=== PATIENT | female | born 1990 | race African-American/Black ===

== ENCOUNTER 2016-04-05 11:18 | Outpatient (CLI) | payer BC, MEDICAID | END 2016-04-05 23:59 | DX: Z36 Encounter for antenatal screening of mother (principal) ==

== ENCOUNTER 2016-04-11 09:28 | Inpatient (IN) | payer MEDICAID ==
[2016-04-11] MEDS ORDERED: SODIUM CHLORIDE FLUSH 0.9% 10 ML SYRINGE IVP ONE ×2 (10:27→13:35)
[2016-04-11] MEDS ORDERED: LACTATED RINGERS 1,000 ML IV ONE (10:27)
[2016-04-11] MEDS ORDERED: ceFAZolin 2 GM/50 ML 50 ML IV SCH (11:00)
[2016-04-11] MEDS ORDERED: fentaNYL 100 MCG/2 ML VIAL IVP ONE (12:00)
[2016-04-11] MEDS ORDERED: MORPHINE PF 5 MG/10 ML AMP EP ONE (12:00)
[2016-04-11] MEDS ORDERED: ONDANSETRON 4 MG/2 ML VIAL IVP ONE (12:00)
[2016-04-11] MEDS ORDERED: METHYLERGONOVINE 0.2 MG/ML AMP IVP ONE (12:00)
[2016-04-11] MEDS ORDERED: PHENYLEPHRINE 50 MG/5 ML VIAL IV ONE (12:00)
[2016-04-11] MEDS ORDERED: KETOROLAC 30 MG/ML VIAL IVP ONE (12:00)
[2016-04-11] MEDS ORDERED: MAGNESIUM HYDROXIDE 2,400 MG/30 ML UDC PO PRN (13:58)
[2016-04-11] MEDS ORDERED: LACTATED RINGERS 1,000 ML IV SCH (14:00)
[2016-04-11] MEDS ORDERED: OXYTOCIN/LACTATED RINGERS 250 ML IV SCH (14:00)
[2016-04-11] MEDS: oxyCODONE 5 MG TABLET PO PRN ×3 (17:02→23:21)
[2016-04-11] MEDS: ACETAMINOPHEN 500 MG TABLET PO SCH (20:22)
[2016-04-11] MEDS: DOCUSATE SODIUM 100 MG CAPSULE PO SCH (21:14)
[2016-04-11] MEDS: CELECOXIB 100 MG CAPSULE PO SCH (21:15)
[2016-04-11] MEDS: SIMETHICONE CHEW 80 MG TABLET PO SCH (21:46)
[2016-04-12] MEDS ORDERED: SODIUM CHLORIDE FLUSH 0.9% 10 ML SYRINGE IVP ONE (02:54)
[2016-04-12] MEDS: ACETAMINOPHEN 500 MG TABLET PO SCH ×3 (04:18→20:58)
[2016-04-12] MEDS: oxyCODONE 5 MG TABLET PO PRN ×4 (06:10→19:09)
[2016-04-12] MEDS: CELECOXIB 100 MG CAPSULE PO SCH ×2 (08:38→20:59)
[2016-04-12] MEDS: DOCUSATE SODIUM 100 MG CAPSULE PO SCH ×2 (08:38→20:59)
[2016-04-12] MEDS: SIMETHICONE CHEW 80 MG TABLET PO SCH ×3 (10:18→19:09)
[2016-04-13] MEDS: oxyCODONE 5 MG TABLET PO PRN ×5 (00:42→21:13)
[2016-04-13] MEDS: ACETAMINOPHEN 500 MG TABLET PO SCH ×2 (04:52→17:06)
[2016-04-13] MEDS: SIMETHICONE CHEW 80 MG TABLET PO SCH ×4 (08:40→21:13)
[2016-04-13] MEDS: DOCUSATE SODIUM 100 MG CAPSULE PO SCH ×2 (08:40→21:14)
[2016-04-13] MEDS: CELECOXIB 100 MG CAPSULE PO SCH ×2 (08:40→21:13)
[2016-04-14] MEDS: ACETAMINOPHEN 500 MG TABLET PO SCH ×2 (01:18→09:11)
[2016-04-14] MEDS: oxyCODONE 5 MG TABLET PO PRN ×4 (01:19→17:31)
[2016-04-14] MEDS: DOCUSATE SODIUM 100 MG CAPSULE PO SCH (09:08)
[2016-04-14] MEDS: CELECOXIB 100 MG CAPSULE PO SCH (09:09)
[2016-04-14] MEDS ORDERED: MAGNESIUM HYDROXIDE 2,400 MG/30 ML UDC PO ONE (10:00)
== END 2016-04-14 17:40 | disposition home or self-care (01) | DRG 766 ==
PROC: 10D00Z1 Extraction of Products of Conception, Low, Open Approach (ICD-10-PCS; principal; 2016-04-11 13:00)
DX: O34.211 Maternal care for low transverse scar from previous cesarean delivery (principal); N85.8 Other specified noninflammatory disorders of uterus; O75.82 Onset (spontaneous) of labor after 37 completed weeks of gestation but before 39 completed weeks gestation, with delivery by (planned) cesarean section; Z3A.37 37 weeks gestation of pregnancy; Z37.0 Single live birth; O90.89 Other complications of the puerperium, not elsewhere classified; G44.209 Tension-type headache, unspecified, not intractable; K59.03 Drug induced constipation; T40.605A Adverse effect of unspecified narcotics, initial encounter; Y92.239 Unspecified place in hospital as the place of occurrence of the external cause

== ENCOUNTER 2016-11-02 19:56 | Emergency (ER) | payer MEDICAID ==
[2016-11-02 20:30] LABS: BILIRUBIN,URINE NEGATIVE (NEGATIVE); HCG UR QUAL NEGATIVE; UA CHARGE (STRIP ONLY) YES; UR CULTURE IF IND NOT INDICATED
--- NOTE | 2016-11-02 21:35 | ED Physician Documentation ---
PD HPI ABD PAIN - Stated complaint Stated Complaint: ABD PX/DIZZINESS - Chief complaint Chief Complaint: Abd Pain - History obtained from History obtained from: Patient - History of Present Illness Timing - onset: Enter time (22:30), Yesterday Timing - details: Gradual onset, Waxing and waning Pain level now: 6 Quality: Pain Location: RLQ, LLQ Improved by: No: Eating, Laying still, Vomiting, BM, Position, Meds Worsened by: No: Eating, Moving, Breathing, Position, Palpation Associated symptoms: Nausea, Vomiting, Diarrhea. No: Fever Similar symptoms before: Has not had sx before Recently seen: Not recently seen - Additional information Additional information: since 10:30 PM last night, patient has had nausea, vomiting, and diarrhea. 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 09/23/14 10/03/15 [Whitney Taylor 10-10 mg Tablet] Pnv No.122/Iron/Folic Acid 1 each PO DAILY #90 tablet 09/23/14 10/03/15 [ Multi Tablet] Famotidine 20 mg PO DAILY #30 tablet 10/03/15 Ondansetron Odt [Zofran] 4 mg TL Q6H PRN #10 tablet 11/03/16 - Allergies Allergies/Adverse Reactions: Allergies Allergy/AdvReac Type Severity Reaction Status Date / Time No Known Drug Allergies Allergy Verified 08/01/13 22:13 - Social History Does the pt smoke?: Yes Smoking Status: Former smoker Does the pt drink ETOH?: No Does the pt have substance abuse?: No - Immunizations Immunizations are current?: Yes - POLST Patient has POLST: No PD ED PE NORMAL - Vitals Vital signs reviewed: Yes - General General: Alert and oriented X 3, No acute distress, Well developed/nourished - HEENT HEENT: Other (tacky/pasty mucous membranes) - Neck Neck: Supple, no meningeal sign - Cardiac Cardiac: RRR, No murmur, No gallop, No rub - Respiratory Respiratory: No respiratory distress, Clear bilaterally - Abdomen Abdomen: Soft, Non distended, Other (tenderness to deep palpation bilateral lower quadrants) - Back Back: No CVA TTP - Derm Derm: Normal color, Warm and dry Results - Vitals Vitals: Vital Signs - 24 hr 11/02/16 11/02/16 11/02/16 20:05 22:01 22:48 Temperature 36.7 C Heart Rate 112 H 102 H 99 Respiratory 18 16 16 Rate Blood Pressure 120/78 114/60 113/61 O2 Saturation 100 99 100 11/03/16 00:32 Temperature 36.5 C Heart Rate 88 Respiratory 16 Rate Blood Pressure 105/62 O2 Saturation 100 Oxygen O2 Source Room air - Labs Labs: Laboratory Tests 11/02/16 11/02/16 11/02/16 20:10 21:30 21:30 WBC 9.6 RBC 3.73 L Hgb 12.8 Hct 34.7 L MCV 92.8 MCH 34.3 H MCHC 37.0 H RDW 19.0 H Plt Count 232 MPV 8.6 Sodium 139 Potassium 3.5 Chloride 105 Carbon Dioxide 25 Anion Gap 9.0 BUN 16 Creatinine 0.5 Estimated GFR (MDRD) 181 Glucose 111 H Calcium 9.2 Total Bilirubin 4.2 H AST 27 ALT 40 Alkaline Phosphatase 68 Total Protein 7.9 Albumin 4.5 Globulin 3.4 Albumin/Globulin Ratio 1.3 Lipase 24 Urine Color ORANGE Urine Clarity CLEAR Urine pH 6.0 Ur Specific Somers 1.025 Urine Protein TRACE Urine Glucose (UA) NEGATIVE Urine Ketones TRACE Urine Occult Blood NEGATIVE Urine Nitrite NEGATIVE Urine Bilirubin NEGATIVE Urine Urobilinogen 1 (NORMAL) Ur Leukocyte Esterase NEGATIVE Ur Microscopic Review NOT INDICATED Urine Culture Comments NOT INDICATED Urine HCG, Qual NEGATIVE - Rads (name of study) CT A/P Radiology: Prelim report reviewed, See rad report PD MEDICAL DECISION MAKING - ED course Complexity details: reviewed results, re-evaluated patient, considered differential, d/w patient Departure - Departure Disposition: 01 Home, Self Care Clinical Impression: Vomiting, Diarrhea Condition: Good Instructions: ED Diet Vomiting Diarrhea, ED Vomiting Diarrhea Nonspecific Ad Follow-Up: [facility] [Provider Group] [facility] [Provider Group] Prescriptions: Ondansetron Odt [Zofran] 4 mg TL Q6H PRN #10 tablet PRN Reason: Nausea / Vomiting Forms: Activity restrictions Discharge Date/Time: 11/03/16 00:34
[2016-11-02 21:47] LABS: HCT - HEMATOCRIT 34.7 % (37.0-47.0); HGB - HEMOGLOBIN 12.8 g/dL (12.0-16.0); MEAN CORPUSCULAR HEMOGLOBIN 34.3 pg (27.0-31.0); MEAN CORPUSCULAR VOLUME 92.8 fL (81.0-99.0); MEAN PLATELET VOLUME 8.6 fL (7.9-10.8); RED BLOOD COUNT 3.73 10^6/uL (4.20-5.40); WHITE BLOOD COUNT 9.6 x10^3/uL (4.8-10.8)
[2016-11-02] MEDS ORDERED: SODIUM CHLORIDE 0.9% 1,000 ML IV STA (21:47)
[2016-11-02] MEDS ORDERED: ONDANSETRON 4 MG/2 ML VIAL IVP STA (21:47)
[2016-11-02] MEDS ORDERED: KETOROLAC 60 MG/2 ML VIAL IVP STA (21:49)
[2016-11-02 21:55] LABS: ALBUMIN/GLOBULIN RATIO 1.3 (1.0-2.2); BILIRUBIN,TOTAL 4.2 mg/dL (0.2-1.0); CALCIUM 9.2 mg/dL (8.5-10.3); CREATININE 0.5 mg/dL (0.4-1.0); POTASSIUM 3.5 mmol/L (3.5-5.0); TOTAL PROTEIN 7.9 g/dL (6.7-8.2)
[2016-11-02] MEDS ORDERED: KETOROLAC 30 MG/ML VIAL ONE (21:57)
[2016-11-02] MEDS ORDERED: ONDANSETRON 4 MG/2 ML VIAL ONE (21:57)
[2016-11-02] MEDS ORDERED: IOPAMIDOL-300 100 ML VIAL IVP ONE (22:37)
--- NOTE | 2016-11-02 23:08 | CT Preliminary Report ---
Exam: CT Abdomen/Pelvis W/ IMPRESSION: Normal abdomen and pelvis CT. [facility] SITE ID: [id number]
--- NOTE | 2016-11-02 23:13 | CT Report ---
EXAM: CT ABDOMEN AND PELVIS EXAM DATE: 11/02/2016 10:49 PM. CLINICAL HISTORY: Lower abdominal pain. COMPARISONS: Chest CT 03/28/2013. TECHNIQUE: Routine helical CT imaging was performed through the abdomen and pelvis. IV contrast: Yes . Enteric contrast: No . Reconstructions: Coronal and sagittal. In accordance with CT protocol optimization, one or more of the following dose reduction techniques w ere utilized for this exam: automated exposure control, adjustment of mA and/or KV based on patient s ize, or use of iterative reconstructive technique. FINDINGS: Lung Bases: Unremarkable. Liver: Unremarkable. No suspicious masses. Gallbladder/Bile Ducts: Unremarkable. Spleen: Unremarkable. Pancreas: Unremarkable. Adrenal Glands: Unremarkable. Kidneys: Unremarkable. No suspicious masses or hydronephrosis. Peritoneal Cavity/Bowel: No bowel obstruction or inflammatory process seen. No free air or significan t free fluid. No masses or adenopathy. The appendix is normal. No excessive stool burden. Pelvic Organs: Bladder, uterus, and adnexa appear unremarkable. Vasculature: No aneurysms or other significant abnormality. Bones: No significant abnormality. Other: None. IMPRESSION: Normal abdomen and pelvis CT. [facility] Referring Provider Line: [phone] SITE ID: [id number]
[2016-11-03] MEDS ORDERED: ONDANSETRON 4 MG/2 ML VIAL IVP STA (00:04)
[2016-11-03] MEDS ORDERED: HYDROmorphone 1 MG/ML SYRINGE IVP STA (00:04)
[2016-11-03] MEDS ORDERED: ONDANSETRON ODT 4 MG TABLET TL STA (00:05)
[2016-11-03] MEDS ORDERED: HYDROmorphone 1 MG/ML SYRINGE ONE (00:10)
[2016-11-03] MEDS ORDERED: ONDANSETRON 4 MG/2 ML VIAL ONE (00:10)
[2016-11-03] MEDS ORDERED: ONDANSETRON ODT 4 MG Prepack 2 TL STA (00:14)
[2016-11-03] MEDS ORDERED: ONDANSETRON ODT 4 MG Prepack 2 TL ONE (00:25)
[2016-11-03 01:10] VITALS: BP 105/62
== END 2016-11-03 00:34 | disposition home or self-care (01) ==
LOC: ED 19:56
DX: R11.2 Nausea with vomiting, unspecified (principal); R19.7 Diarrhea, unspecified; R10.31 Right lower quadrant pain; Z87.891 Personal history of nicotine dependence; Z87.442 Personal history of urinary calculi
CPT/HCPCS: 36415; 74177; 80053; 81003; 81025; 83690; 85027; 96361; 96374; 96375; 96376; 99284; J1170; Q9967; 81001; 87086

== ENCOUNTER 2017-10-26 16:40 | Emergency (ER) | payer MEDICAID ==
[2017-10-26 16:50] VITALS: BP 129/81
--- NOTE | 2017-10-26 17:25 | ED Physician Documentation ---
PD HPI UPPER EXT INJURY - Stated complaint Stated Complaint: FINGER INJURY - Chief complaint Chief Complaint: Ext Problem - History obtained from History obtained from: Patient, Family - History of Present Illness Location: Left, Finger (middle) Type of injury: Blunt / blow Where injury occurred: Street Timing - onset: Enter time (1600), Today Timing - duration: Minutes Timing - details: Abrupt onset, Still present Improved by: Rest, Immobilization Worsened by: Moving, Palpating Associated symptoms: Swelling. No: Weakness, Numbness Contributing factors: No: Anticoagulated Similar symptoms before: Has not had sx before Recently seen: Not recently seen - Additonal information Additional information: 27-year-old female was at the [place] with her daughter today when she went to get back into her car her daughter accidentally slammed her hand in the car door. She has an abrasion and laceration to the left middle finger and a lot of pain over the DIP joint. Review of Systems Constitutional: denies: Fever Respiratory: denies: Cough GI: denies: Vomiting, Diarrhea : denies: Dysuria Skin: denies: Rash Musculoskeletal: reports: Extremity pain, Joint pain, Joint swelling. 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 - Present Medications Home Medications: Ambulatory Orders Medication Instructions Recorded Confirmed No Known Home Medications [No 10/26/17 10/26/17 Known Home Medications] - Allergies Allergies/Adverse Reactions: Allergies Allergy/AdvReac Type Severity Reaction Status Date / Time No Known Drug Allergies Allergy Verified 10/26/17 16:50 - Social History Does the pt smoke?: Yes Smoking Status: Former smoker Does the pt drink ETOH?: No Does the pt have substance abuse?: No - Immunizations Immunizations are current?: Yes - POLST Patient has POLST: No PD ED PE NORMAL - Vitals Vital signs reviewed: Yes (hypertensive ) - General General: Alert and oriented X 3, No acute distress, Well developed/nourished - HEENT HEENT: Atraumatic, PERRL - Respiratory Respiratory: No respiratory distress - Derm Derm: Normal color, Warm and dry, No rash - Extremities Extremities: No deformity, Other (There is point tenderness and swelling to the DIP joint on the left middle finger. There is laceration to the dorsal surface and the ventral surface both are superficial ) Results - Vitals Vitals: Vital Signs - 24 hr 10/26/17 16:49 Temperature 36.5 C Heart Rate 61 Respiratory 18 Rate Blood Pressure 129/81 H O2 Saturation 98 Oxygen O2 Source Room air - Rads (name of study) hand Radiology: Prelim report reviewed (Impression: Normal hand radiography. ), EMP read indepedently, See rad report PD MEDICAL DECISION MAKING - ED course Complexity details: reviewed results, re-evaluated patient, considered differential, d/w patient, d/w family ED course: 27-year-old female has caught her left middle finger in the car door and has contusion to the middle finger without evidence of fracture and there is deep abrasion to the finger on both volar and dorsal surface. These lacerations do not require suturing. - Sepsis Event Vital Signs: Vital Signs - 24 hr 10/26/17 16:49 Temperature 36.5 C Heart Rate 61 Respiratory 18 Rate Blood Pressure 129/81 H O2 Saturation 98 Oxygen O2 Source Room air Departure - Departure Disposition: 01 Home, Self Care Clinical Impression: Finger contusion Qualifiers: Encounter type: initial encounter Finger: middle finger Damage to nail status: without damage Laterality: left Qualified Code(s): S60.032A - Contusion of left middle finger without damage to nail, initial encounter Condition: Stable Instructions: ED Contusion Finger Follow-Up: [facility] [Provider Group] Forms: Activity restrictions
--- NOTE | 2017-10-26 17:45 | XRAY Report ---
Procedure Date: 10/26/2017 Accession Number: [id number] / [id number] Procedure: XR - Hand 3 View LT CPT Code: FULL RESULT: EXAM: LEFT HAND RADIOGRAPHY EXAM DATE: 10/26/2017 05:38 PM. CLINICAL HISTORY: Caught in car door. Pain mainly over second and third distal digits. COMPARISON: None. TECHNIQUE: 3 views. FINDINGS: Bones: Normal. No fractures or bone lesions. Joints: Normal. No subluxations. Soft Tissues: Normal. No soft tissue swelling. IMPRESSION: Normal hand radiography. [facility]
== END 2017-10-26 18:11 | disposition home or self-care (01) ==
LOC: ED 16:40
DX: S61.213A Laceration without foreign body of left middle finger without damage to nail, initial encounter (principal); S60.032A Contusion of left middle finger without damage to nail, initial encounter; W23.0XXA Caught, crushed, jammed, or pinched between moving objects, initial encounter; Y92.830 Public park as the place of occurrence of the external cause
CPT/HCPCS: 99282; 99283

== ENCOUNTER 2017-11-15 13:30 | Outpatient (CLI) | payer MEDICAID ==
[2017-11-18 17:41] LABS: HIV AG/AB 4TH GEN NON-REACTIVE (NON-REACTIVE)
[2017-11-18 19:51] LABS: HEPATITIS C ANTIBODY NON-REACTIVE (NON-REACTIVE)
== END 2017-11-15 13:31 | disposition home or self-care (01) ==
LOC: LAB.N 13:30
PROVIDERS: ATTEND Physician Assistant Medical
DX: Z11.3 Encounter for screening for infections with a predominantly sexual mode of transmission (principal)
CPT/HCPCS: 36415; 81599; 86592; 86803; 87389; 87491; 87591

== ENCOUNTER 2018-03-22 00:11 | Emergency (ER) | payer MEDICAID ==
--- NOTE | 2018-03-22 00:18 | ED Physician Documentation ---
PD HPI URI - Stated complaint Stated Complaint: SORE THROAT,CHEST CONGESTION - History obtained from History obtained from: Patient - History of Present Illness Timing - onset: How many days ago (2-3) Timing duration: Days (2-3) Timing details: Gradual onset, Still present Associated symptoms: Nasal congestion, Sore throat, Dry cough, NVD (nausea and some loose stool, but no vomiting). No: Fever Contributing factors: No: Sick contact, Travel Similar symptoms before: Has not had sx before Recently seen: Not recently seen Review of Systems Constitutional: reports: Myalgias. denies: Fever Nose: reports: Congestion Throat: reports: Sore throat, Other (hoarse voice for 2 days) Respiratory: reports: Cough. denies: Dyspnea, Wheezing GI: reports: Nausea, Diarrhea (mild). 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 - Present Medications Home Medications: Ambulatory Orders Medication Instructions Recorded Confirmed Benzonatate [Tessalon Perle] 100 - 200 mg PO TID PRN #30 capsule 03/22/18 Dexamethasone [Decadron] 4 mg PO DAILY #5 tablet 03/22/18 - Allergies Allergies/Adverse Reactions: Allergies Allergy/AdvReac Type Severity Reaction Status Date / Time No Known Drug Allergies Allergy Verified 03/22/18 00:21 - Social History Does the pt smoke?: Yes Smoking Status: Current every day smoker Does the pt drink ETOH?: No Does the pt have substance abuse?: No - Immunizations Immunizations are current?: Yes - POLST Patient has POLST: No PD ED PE NORMAL - Vitals Vital signs reviewed: Yes - General General: Alert and oriented X 3, Well developed/nourished - HEENT HEENT: Pharynx benign (minimal redness without swelling nor exudate) - Neck Neck: Supple, no meningeal sign, No adenopathy - Cardiac Cardiac: RRR, No murmur - Respiratory Respiratory: Clear bilaterally - Derm Derm: Normal color, Warm and dry, No rash - Neuro Neuro: Alert and oriented X 3, No motor deficit, Normal speech (slight hoarseness) Results - Vitals Vitals: Vital Signs - 24 hr 03/22/18 00:18 Temperature 37.0 C Heart Rate 110 H Respiratory 17 Rate Blood Pressure 134/83 H O2 Saturation 100 Oxygen O2 Source Room air PD MEDICAL DECISION MAKING - ED course Complexity details: considered differential (upper resp symptoms. Can check strep swab as well. No pneumonic findings per se. ), d/w patient Departure - Departure Clinical Impression: Upper respiratory infection Qualifiers: URI type: unspecified URI Qualified Code(s): J06.9 - Acute upper respiratory infection, unspecified Condition: Stable Record reviewed to determine appropriate education?: Yes Instructions: ED Upper Resp Infec No Abx Tx Prescriptions: Benzonatate [Tessalon Perle] 100 - 200 mg PO TID PRN #30 capsule PRN Reason: Cough Dexamethasone [Decadron] 4 mg PO DAILY #5 tablet Comments: Drink lots of fluids. You could add Decadron steroid for inflammation of the throat and bronchials to reduce symptoms. Tessalon if needed for cough. [id number] medications such as cough medicine and lozenges and Tylenol or ibuprofen are all okay. I would expect improvement over the next several days or so. No signs of bacterial infection at this time so I would not anticipate any improvement with antibiotics. Forms: Activity restrictions
[2018-03-22 00:21] VITALS: BP 134/83
[2018-03-22] MEDS ORDERED: BENZONATATE 100 MG CAPSULE PO STA (00:35)
[2018-03-22] MEDS ORDERED: DEXAMETHASONE 10 MG/ML VIAL PO STA (00:35)
[2018-03-22] MEDS ORDERED: ACETAMINOPHEN 325 MG TABLET PO STA (00:35)
[2018-03-22] MEDS ORDERED: ONDANSETRON ODT 4 MG TABLET TL STA (00:38)
== END 2018-03-22 00:52 | disposition home or self-care (01) ==
LOC: ED 00:11
DX: J06.9 Acute upper respiratory infection, unspecified (principal); F17.200 Nicotine dependence, unspecified, uncomplicated
CPT/HCPCS: 87070; 87077; 87430; 99283; A9270; Q0162

== ENCOUNTER 2019-04-04 09:06 | Outpatient (CLI) | payer MEDICAID ==
--- NOTE | 2019-04-05 23:31 | Ultrasound Report ---
Reason: DYSFUNCTIONAL UTERINE BLEEDING Procedure Date: 04/04/2019 Accession Number: [id number] / [id number] Procedure: US - Pelvic w/Transvaginal CPT Code: Final Report FULL RESULT: EXAM: PELVIC ULTRASOUND EXAM DATE: 04/04/2019 09:18 AM. CLINICAL HISTORY: DYSFUNCTIONAL UTERINE BLEEDING. COMPARISON: None. TECHNIQUE: Realtime transabdominal pelvic scan performed to identify the uterus and adnexa and as an overview of other pelvic structures, followed by transvaginal scan to provide greater detail of the uterus and adnexa, with static image documentation. FINDINGS: Uterus: 8.8 x 4.6 x 6.9 cm, volume 145 cc. ANTEVERTED position. Normal overall size and echotexture. Masses: None. Endometrium: 5 mm. Trace fluid in the endometrial cavity. Cervix: Small nabothian cyst. Right Ovary: 1.9 x 1.0 x 1.9 cm, volume 1.9 cc. Normal echotexture and blood flow. Left Ovary: 1.8 x 1.6 x 2.5 cm, volume 3.7 cc. Dominant follicle measuring 1.5 x 1.1 x 1.5 cm. Normal Doppler flow signal seen in the ovary. Free Fluid: Trace amount in the posterior cul-de-sac and right adnexa. Other: None. IMPRESSION: 1. Endometrial thickness is normal. There is trace endometrial fluid consistent with history of dysfunctional uterine bleeding. 2. Ovaries appear normal with dominant follicle on the left. 3. Trace amount of free fluid. [facility]
== END 2019-04-04 09:07 | disposition home or self-care (01) ==
LOC: DI 09:06
PROVIDERS: ATTEND Obstetrics & Gynecology
DX: N93.8 Other specified abnormal uterine and vaginal bleeding (principal)
CPT/HCPCS: 76830; 76856

== ENCOUNTER 2019-05-27 07:00 | Outpatient (CLI) | payer MEDICAID ==
[2019-05-27 20:12] LABS: CANDIDA GROUP DNA POSITIVE (NEGATIVE); CANDIDA KRUSEI DNA NEGATIVE (NEGATIVE); TRICHOMONAS VAGINALIS DNA NEGATIVE (NEGATIVE)
== END 2019-05-27 23:59 | disposition home or self-care (01) ==
LOC: LAB.R 07:00
PROVIDERS: ATTEND Nurse Practitioner Obstetrics & Gynecology
DX: N89.8 Other specified noninflammatory disorders of vagina (principal)
CPT/HCPCS: 87661; 87801

== ENCOUNTER 2019-09-26 17:52 | Emergency (ER) | payer MEDICAID ==
[2019-09-26] MEDS ORDERED: BUFFERED LIDOCAINE 10 ML SYRINGE SUBQ STA (18:38)
[2019-09-26] MEDS ORDERED: TETANUS/DIPHTHERIA/PERTUSSIS 0.5 ML SYRINGE IM ONE (18:38)
--- NOTE | 2019-09-26 18:39 | ED Physician Documentation ---
PD HPI UPPER EXT INJURY - Stated complaint Stated Complaint: RT HAND LAC - Chief complaint Chief Complaint: Laceration - History of Present Illness Location: Right (She had a stick in her hand and swelling it up and then it kind of stabbed her in the palm at home just prior to arrival. Tetanus is unknown. 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 Home Medications: Ambulatory Orders Medication Instructions Recorded Confirmed Benzonatate [Tessalon Perle] 100 - 200 mg PO TID PRN #30 capsule 03/22/18 dexAMETHasone [Decadron] 4 mg PO DAILY #5 tablet 03/22/18 - Allergies Allergies/Adverse Reactions: Allergies Allergy/AdvReac Type Severity Reaction Status Date / Time No Known Drug Allergies Allergy Verified 09/26/19 17:54 - Social History Does the pt smoke?: Yes Smoking Status: Current every day smoker Does the pt drink ETOH?: No Does the pt have substance abuse?: No - Immunizations Immunizations are current?: Yes - POLST Patient has POLST: No PD ED PE NORMAL - Vitals Vital signs reviewed: Yes - General General: Alert and oriented X 3, No acute distress - Extremities Extremities: Other (There is a 1 cm laceration on the palm of the right hand basically right over the mid carpals. Flexor tendon strength is intact in all digits as is sensation and cap refill.) - Neuro Neuro: Alert and oriented X 3, Normal speech Results - Vitals Vitals: Vital Signs - 24 hr 09/26/19 17:54 Temperature 36.8 C Heart Rate 76 Respiratory 16 Rate Blood Pressure 129/78 O2 Saturation 97 Oxygen O2 Source Room air Procedures - Laceration (location) L palm Length in cm: 1 Wound type: Linear, Into subcut fat Neurovascular status: Sensory intact, Motor intact, Vascular intact Anesthesia: Lidocaine 1%, With bicarb Wound Preparation: Irrigated copiously NS Skin layer closure: Nylon, Interrupted, Size #-0 - enter number (4-0), Sutures - enter # (2) Other: Tetanus booster given Complexity: Simple Departure - Departure Disposition: 01 Home, Self Care Clinical Impression: Laceration Condition: Good Record reviewed to determine appropriate education?: Yes Instructions: ED Laceration Hand Comments: Come back for any signs of infection which would include: Redness, swelling, drainage, increased pain, or fevers. You can wash it soap and water. Keep it covered and moist with bacitracin ointment which is available over the counter; avoid neosporin. Follow-up with your physician in about 14 days for suture removal. Forms: Activity restrictions
[2019-09-26 19:16] VITALS: BP 126/89
== END 2019-09-26 19:14 | disposition home or self-care (01) ==
LOC: ED 17:52
DX: S61.411A Laceration without foreign body of right hand, initial encounter (principal); W26.8XXA Contact with other sharp object(s), not elsewhere classified, initial encounter; Y93.E5 Activity, floor mopping and cleaning; Y92.009 Unspecified place in unspecified non-institutional (private) residence as the place of occurrence of the external cause; Z23 Encounter for immunization; F17.200 Nicotine dependence, unspecified, uncomplicated
CPT/HCPCS: 12001; 90471; 99282; 99283

== ENCOUNTER 2019-12-21 06:43 | Emergency (ER) | payer OTHER, MEDICAID ==
[2019-12-21 06:56] VITALS: BP 134/84
--- NOTE | 2019-12-21 07:08 | ED Physician Documentation ---
PD HPI UPPER EXT INJURY - Stated complaint Stated Complaint: GLF/RT ARM PX - Chief complaint Chief Complaint: Trauma Ext - History obtained from History obtained from: Patient - History of Present Illness Location: Right, Shoulder Type of injury: Fall (she states she slipped walking out to trash area, and fell onto right shoulder.) Where injury occurred: Work ([employer]) Timing - onset: Today Timing - details: Abrupt onset, Still present Similar symptoms before: Has not had sx before Recently seen: Not recently seen Review of Systems Constitutional: denies: Fever, Chills Nose: denies: Rhinorrhea / runny nose, Congestion Throat: denies: Sore throat Respiratory: denies: Cough GI: denies: Abdominal Pain Musculoskeletal: reports: Joint pain (right shoulder only) Neurologic: denies: Altered mental status, Headache, Head injury PD PAST MEDICAL HISTORY - Past Medical History Cardiovascular: None Respiratory: None Neuro: None Endocrine/Autoimmune: None GI: None 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 HEENT: None Psych: None Musculoskeletal: None Derm: None - Past Surgical History 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 - Present Medications Home Medications: Ambulatory Orders Medication Instructions Recorded Confirmed Benzonatate [Tessalon Perle] 100 - 200 mg PO TID PRN #30 capsule 03/22/18 dexAMETHasone [Decadron] 4 mg PO DAILY #5 tablet 03/22/18 Cephalexin [Keflex] 500 mg PO Q6H #28 capsule 10/03/19 Hydrocodone/Acetaminophen 1 - 2 each PO Q6HR PRN #14 tablet 10/03/19 [Hydrocodone-Acetamin 5-325 mg] - Allergies Allergies/Adverse Reactions: Allergies Allergy/AdvReac Type Severity Reaction Status Date / Time No Known Drug Allergies Allergy Verified 09/26/19 17:54 - Social History Does the pt smoke?: Yes Smoking Status: Current every day smoker Does the pt drink ETOH?: No Does the pt have substance abuse?: No - Immunizations Immunizations are current?: Yes - POLST Patient has POLST: No PD ED PE NORMAL - Vitals Vital signs reviewed: Yes - General General: Alert and oriented X 3, Well developed/nourished, Other (guarded ROM of the right shoulder) - HEENT HEENT: Atraumatic - Neck Neck: Supple, no meningeal sign, No bony TTP - Derm Derm: Normal color, Warm and dry - Extremities Extremities: Other (right shoulder with tenderness anterolateral area and at distal clavicle. No stepoff at the AC. Elbow and wrist not tender. ) - Neuro Neuro: Alert and oriented X 3, No motor deficit, No sensory deficit, Normal speech Eye Opening: Spontaneous Motor: Obeys Commands Verbal: Oriented GCS Score: 15 Results - Vitals Vitals: Vital Signs - 24 hr 12/21/19 06:53 Temperature 36.7 C Heart Rate 93 Respiratory 18 Rate Blood Pressure 134/84 H O2 Saturation 97 Oxygen O2 Source Room air - Rads (name of study) right shoulder Radiology: Discussed with rads (called report - no fractures. ), See rad report PD MEDICAL DECISION MAKING - ED course Complexity details: reviewed results, considered differential (shoulder contusion. No fractures. Hurts with ROM so will allow decreased use at work for 3 days; off work today. ), d/w patient Departure - Departure Disposition: 01 Home, Self Care Clinical Impression: Fall from slip, trip, or stumble Qualifiers: Encounter type: initial encounter Qualified Code(s): W01.0XXA - Fall on same level from slipping, tripping and stumbling without subsequent striking against object, initial encounter Shoulder contusion Qualifiers: Encounter type: initial encounter Laterality: right Qualified Code(s): S40.011A - Contusion of right shoulder, initial encounter Condition: Stable Record reviewed to determine appropriate education?: Yes Discharge Date/Time: 12/21/19 09:13
--- NOTE | 2019-12-22 08:00 | XRAY Report ---
PROCEDURE: Shoulder 3 View RT INDICATIONS: fall TECHNIQUE: 3 views of the shoulder were acquired. COMPARISON: None. FINDINGS: Bones: No acute fractures or dislocations. No suspicious bony lesions. Visualized ribs appear inta ct. Soft tissues: No suspicious soft tissue calcifications. IMPRESSION: No acute osseous abnormality. Findings were discussed with Dr. Salinas of the Emergency Department by telephone on 12/21/2019 at ap proximately 9:00 AM. This dictation is being submitted the following day due to system downtime. Reviewed by: Prakash Quezada MD on 12/22/2019 7:59 AM PDT Approved by: Prakash Quezada MD on 12/22/2019 7:59 AM PDT Station ID: [id number]
== END 2019-12-21 09:13 | disposition home or self-care (01) ==
LOC: ED 06:43
DX: S40.011A Contusion of right shoulder, initial encounter (principal); W10.9XXA Fall (on) (from) unspecified stairs and steps, initial encounter; Y93.01 Activity, walking, marching and hiking; Y99.0 Civilian activity done for income or pay; F17.200 Nicotine dependence, unspecified, uncomplicated
CPT/HCPCS: 1040M; 99282; 99283

== ENCOUNTER 2019-12-23 08:00 | Outpatient (CLI) | payer MEDICAID ==
[2019-12-23 20:36] LABS: TRICHOMONAS VAGINALIS DNA NEGATIVE (NEGATIVE)
== END 2019-12-23 23:59 | disposition home or self-care (01) ==
LOC: LAB.R 08:00
PROVIDERS: ATTEND Nurse Practitioner Obstetrics & Gynecology
DX: N94.19 Other specified dyspareunia (principal)
CPT/HCPCS: 87491; 87591; 87661

== ENCOUNTER 2020-10-08 17:28 | Emergency (ER) | payer MEDICAID ==
--- NOTE | 2020-10-08 18:13 | ED Physician Documentation ---
History of Present Illness - Stated complaint Stated Complaint: COUGH/SNEEZING/RUNNING NOSE - Chief complaint Chief Complaint: General - History obtained from History obtained from: Patient - History of Present Illness Timing: How many days ago (2) Pain level max: 0 Pain level now: 0 - Additonal information Additional information: 30-year-old female presents to the emergency department with cough congestion and sneezing for the past 2 days. Nothing makes it better or worse. She works at [employer] and was supposed to return to work tonight. She is concerned about potential Covid. She has not had her vaccination. No fevers. No chills. No vomiting, no abdominal pain. No changes in smell or taste. Denies any possibility of . Review of Systems Ten Systems: 10 systems reviewed and negative Constitutional: denies: Fever, Chills Nose: reports: Rhinorrhea / runny nose, Congestion Throat: denies: Sore throat Cardiac: denies: Chest pain / pressure Respiratory: reports: Cough (Productive). denies: Dyspnea, Wheezing GI: denies: Abdominal Pain, Nausea, Vomiting, Diarrhea Skin: denies: Rash Musculoskeletal: denies: Neck pain, Back pain Neurologic: denies: Headache PD PAST MEDICAL HISTORY - Past Medical History Past Medical History: Yes Cardiovascular: None Respiratory: None Neuro: None Endocrine/Autoimmune: None GI: None COSMETIC SURGEON: None : Kidney stones HEENT: None Psych: None Musculoskeletal: None Derm: None - Past Surgical History Past Surgical History: Yes /COSMETIC SURGEON: section - Present Medications Home Medications: Ambulatory Orders Medication Instructions Recorded Confirmed Benzonatate [Tessalon] 200 mg PO TID PRN #30 cap 10/08/20 Cetirizine HCl/Pseudoephedrine 1 each PO BID PRN #30 ea 10/08/20 [Zyrtec-D Tablet] - Allergies Allergies/Adverse Reactions: Allergies Allergy/AdvReac Type Severity Reaction Status Date / Time No Known Drug Allergies Allergy Verified 10/08/20 17:33 - Social History Does the pt smoke?: No Smoking Status: Former smoker Does the pt drink ETOH?: Yes Does the pt have substance abuse?: Yes Substance Use and Type: Marijuana - Immunizations Immunizations are current?: Yes - POLST Patient has POLST: No PD ED PE NORMAL - Vitals Vital signs reviewed: Yes - General General: Alert and oriented X 3, No acute distress - HEENT HEENT: PERRL, Ears normal, Moist mucous membranes, Pharynx benign - Neck Neck: Supple, no meningeal sign, No adenopathy - Cardiac Cardiac: RRR - Respiratory Respiratory: No respiratory distress, Clear bilaterally - Abdomen Abdomen: Soft, Non tender, Non distended - Derm Derm: Warm and dry - Neuro Neuro: Alert and oriented X 3 - Psych Psych: Normal mood, Normal affect Results - Vitals Vitals: Vital Signs - 24 hr 10/08/20 10/08/20 17:33 19:25 Temperature 37.2 C 37.3 C Heart Rate 118 H 110 H Respiratory 20 18 Rate Blood Pressure 135/85 H 130/78 O2 Saturation 98 98 Oxygen O2 Source Room air - Labs Labs: Laboratory Tests 10/08/20 17:50 Nasal Adenovirus (PCR) NOT DETECTED Nasal B. parapertussis DNA (PCR) NOT DETECTED Nasal Coronavir 229E PCR NOT DETECTED Nasal Coronavir HKU1 PCR NOT DETECTED Nasal Coronavir NL63 PCR NOT DETECTED Nasal Coronavir OC43 PCR NOT DETECTED Nasal Enterovir/Rhinovir PCR DETECTED A Nasal Influenza B PCR NOT DETECTED Nasal Influenza A PCR NOT DETECTED Nasal Parainfluen 1 PCR NOT DETECTED Nasal Parainfluen 2 PCR NOT DETECTED Nasal Parainfluen 3 PCR NOT DETECTED Nasal Parainfluen 4 PCR NOT DETECTED Nasal RSV (PCR) NOT DETECTED Nasal B.pertussis DNA PCR NOT DETECTED Nasal C.pneumoniae (PCR) NOT DETECTED Shoaib Human Metapneumo PCR NOT DETECTED Nasal M.pneumoniae (PCR) NOT DETECTED Nasal SARS-CoV-2 (PCR) NOT DETECTED - Rads (name of study) cxr Radiology: Final report received, EMP read contemporaneously, See rad report (no acute disease) PD MEDICAL DECISION MAKING - ED course Complexity details: reviewed results, re-evaluated patient, considered differential, d/w patient ED course: Patient is well-appearing, nontoxic. Afebrile. No acute findings on chest x- ray. She has tested positive for rhinovirus. Covid test is negative. Encourage the patient to get vaccinated. Patient counseled regarding signs and symptoms for which I believe and urgent re-evaluation would be necessary. Patient with good understanding of and agreement to plan and is comfortable going home at this time This document was made in part using voice recognition software. While efforts are made to proofread this document, sound alike and grammatical errors may occur. Departure - Departure Disposition: 01 Home, Self Care Clinical Impression: Rhinovirus infection Condition: Good Instructions: ED URI Viral Prescriptions: Benzonatate [Tessalon] 200 mg PO TID PRN #30 cap PRN Reason: Cough Cetirizine HCl/Pseudoephedrine [Zyrtec-D Tablet] 1 each PO BID PRN #30 ea PRN Reason: nasal congestion Comments: You have tested positive for rhinovirus tonight. Your Covid test is negative. Follow-up with your doctor for further care. Return if you worsen. It is highly advised that you obtain your Covid vaccination as soon as possible. Discharge Date/Time: 10/08/20 19:27
--- NOTE | 2020-10-08 18:57 | XRAY Report ---
PROCEDURE: Chest 1 View X-Ray INDICATIONS: Cough TECHNIQUE: One view of the chest was acquired. COMPARISON: 03/27/2013 chest radiographs FINDINGS: Surgical changes and devices: None. Lungs and pleura: No pleural effusions or pneumothorax. Lungs are clear. Mediastinum: Mediastinal contours appear normal. Heart size is normal. Bones and chest wall: No suspicious bony lesions. Overlying soft tissues appear unremarkable. IMPRESSION: No acute cardiopulmonary process demonstrated radiographically. Reviewed by: Roberto Altamirano MD on 10/08/2020 6:56 PM PDT Approved by: Roberto Altamirano MD on 10/08/2020 6:56 PM PDT Station ID: [id number]
[2020-10-08 19:04] LABS: CORONAVIRUS 229E-RESP PCR NOT DETECTED; CORONAVIRUS HKU1-RESP PCR NOT DETECTED; CORONAVIRUS NL63-RESP PCR NOT DETECTED; CORONAVIRUS OC43-RESP PCR NOT DETECTED; HUMAN METAPNEUMOVIRUS NOT DETECTED; RHINOVIRUS/ENTEROVIRUS DETECTED; SARS-CoV-2 -RESP PCR PANEL NOT DETECTED
[2020-10-08 19:05] LABS: B. PARAPERTUSSIS- RESP PCR PAN NOT DETECTED; B. PERTUSSIS- RESP PCR PANEL NOT DETECTED; C. PNEUMONIAE- RESP PCR PANEL NOT DETECTED; INFLUENZA A- RESP PCR PANEL NOT DETECTED; INFLUENZA B - RESP PCR PANEL NOT DETECTED; M. PNEUMONIAE- RESP PCR PANEL NOT DETECTED; PARAINFLUENZA VIRUS 1 NOT DETECTED; PARAINFLUENZA VIRUS 2 NOT DETECTED; PARAINFLUENZA VIRUS 3 NOT DETECTED; PARAINFLUENZA VIRUS 4 NOT DETECTED; RSV- RESP PCR PANEL NOT DETECTED
[2020-10-08 19:25] VITALS: BP 130/78
== END 2020-10-08 19:27 | disposition home or self-care (01) ==
LOC: ED 17:28
DX: B34.8 Other viral infections of unspecified site (principal); Z87.891 Personal history of nicotine dependence; Z20.822 Contact with and (suspected) exposure to COVID-19
CPT/HCPCS: 0202U; 71045; 99284

== ENCOUNTER 2020-10-10 16:06 | Day surgery (SDC) | payer MEDICAID ==
[2020-10-10 17:01] LABS: BASOPHILS # (AUTO) 0.1 10^3/uL (0.0-0.1); BASOPHILS % (AUTO) 0.6 %; EOSINOPHILS # (AUTO) 0.1 10^3/uL (0.0-0.7); EOSINOPHILS % (AUTO) 0.6 %; HCT - HEMATOCRIT 37.4 % (37.0-47.0); HGB - HEMOGLOBIN 14.3 g/dL (12.0-16.0); LYMPHOCYTES # (AUTO) 1.4 10^3/uL (1.5-3.5); LYMPHOCYTES % (AUTO) 11.4 %; MEAN CORPUSCULAR HEMOGLOBIN 35.6 pg (27.0-31.0); MEAN CORPUSCULAR HGB CONC 38.2 g/dL (32.0-36.0); MEAN PLATELET VOLUME 10.5 fL (7.9-10.8); MONOCYTES # (AUTO) 0.5 10^3/uL (0.0-1.0); MONOCYTES % (AUTO) 4.2 %; NEUTROPHILS # (AUTO) 10.1 10^3/uL (1.5-6.6); NEUTROPHILS % (AUTO) 82.7 %; PLT - PLATELET COUNT 293 10^3/uL (130-450); RED BLOOD COUNT 4.02 10^6/uL (4.20-5.40); RED CELL DISTRIBUTION WIDTH 14.8 % (12.0-15.0); WHITE BLOOD COUNT 12.2 x10^3/uL (4.8-10.8)
[2020-10-10 17:09] LABS: SLIDE REVIEW? Indicated
[2020-10-10 17:12] LABS: ALBUMIN 5.1 g/dL (3.2-5.5); ALBUMIN/GLOBULIN RATIO 1.4 (1.0-2.2); BILIRUBIN,TOTAL 2.5 mg/dL (0.2-1.0); CALCIUM 9.5 mg/dL (8.5-10.3); CREATININE 0.7 mg/dL (0.4-1.0); POTASSIUM 3.3 mmol/L (3.5-5.0); TOTAL PROTEIN 8.8 g/dL (6.7-8.2)
[2020-10-10 18:05] LABS: DIFFERENTIAL COMMENT MANUAL=AUTO DIFF; PLATELET ESTIMATE, MANUAL NORMAL (130-450,000) (NORMAL); PLATELET MORPHOLOGY NORMAL APPEARANCE (NORMAL); RBC MORPHOLOGY (MULTIPLE) 1+ MACROCYTOSIS (NORMAL)
--- NOTE | 2020-10-10 18:23 | ED Physician Documentation ---
PD HPI ABD PAIN - Stated complaint Stated Complaint: STOMACH PX - Chief complaint Chief Complaint: Abd Pain - History obtained from History obtained from: Patient - History of Present Illness Timing - onset: How many days ago (2) Timing - duration: Days (2) Pain level max: 8 Pain level now: 6 Location: RUQ, Epigastric Worsened by: Eating Associated symptoms: Nausea, Vomiting. No: Melena, Hematochezia, Dysuria - Additional information Additional information: 30-year-old female presents to the emergency department with abdominal pain. Ongoing for the past 2 days. Worse with eating and drinking. Nothing makes it better. She has had nausea and vomiting as well. She states that she feels like she is dehydrated. Pain is epigastric and right upper quadrant. Denies any possibility of . Was seen here recently for a viral upper respiratory infection. Review of Systems Ten Systems: 10 systems reviewed and negative Constitutional: denies: Fever, Chills Respiratory: denies: Cough GI: reports: Abdominal Pain, Nausea, Vomiting. 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 - Present Medications Home Medications: Ambulatory Orders Medication Instructions Recorded Confirmed Benzonatate [Tessalon] 200 mg PO TID PRN #30 cap 10/08/20 Cetirizine HCl/Pseudoephedrine 1 each PO BID PRN #30 ea 10/08/20 [Zyrtec-D Tablet] - Allergies Allergies/Adverse Reactions: Allergies Allergy/AdvReac Type Severity Reaction Status Date / Time No Known Drug Allergies Allergy Verified 10/10/20 16:10 - Social History Does the pt smoke?: No Smoking Status: Former smoker Does the pt drink ETOH?: Yes Does the pt have substance abuse?: Yes - Immunizations Immunizations are current?: Yes - POLST Patient has POLST: No PD ED PE NORMAL - Vitals Vital signs reviewed: Yes - General General: Alert and oriented X 3, No acute distress, Well developed/nourished - HEENT HEENT: PERRL, Moist mucous membranes - Neck Neck: Supple, no meningeal sign - Cardiac Cardiac: RRR, Strong equal pulses - Respiratory Respiratory: No respiratory distress, Clear bilaterally - Abdomen Abdomen: Soft, Non distended, Other (Tender to palpation right upper quadrant. Positive Francis sign) - Back Back: No spinal TTP - Derm Derm: Warm and dry - Extremities Extremities: No edema - Neuro Neuro: Alert and oriented X 3 - Psych Psych: Normal mood, Normal affect Results - Vitals Vitals: Vital Signs - 24 hr 10/10/20 10/10/20 10/10/20 16:10 19:01 20:51 Temperature 36.5 C 37.2 C Heart Rate 85 67 76 Heart Rate [ Brachial] Respiratory 18 16 16 Rate Blood Pressure 140/98 H 131/64 H 135/78 H Blood Pressure [Right Brachial artery] O2 Saturation 99 100 99 10/10/20 22:16 Temperature 37.2 C Heart Rate Heart Rate [ 73 Brachial] Respiratory 18 Rate Blood Pressure Blood Pressure 134/68 H [Right Brachial artery] O2 Saturation 96 Oxygen O2 Source Room air - Labs Labs: Laboratory Tests 10/10/20 10/10/20 16:54 16:54 WBC 12.2 H RBC 4.02 L Hgb 14.3 Hct 37.4 MCV 93.0 MCH 35.6 H MCHC 38.2 H RDW 14.8 Plt Count 293 MPV 10.5 Neut # (Auto) 10.1 H Lymph # (Auto) 1.4 L [place] # (Auto) 0.5 Eos # (Auto) 0.1 Baso # (Auto) 0.1 Absolute Nucleated RBC 0.00 Band Neuts % (Manual) Not Reportable Abnorm Lymph % (Manual) Not Reportable Nucleated RBC % 0.0 Neutrophils # (Manual) Not Reportable Lymphocytes # (Manual) Not Reportable Monocytes # (Manual) Not Reportable Eosinophils # (Manual) Not Reportable Basophils # (Manual) Not Reportable Differential Comment MANUAL=AUTO DIFF Manual Slide Review Indicated Platelet Estimate NORMAL (130-450,000) Platelet Morphology NORMAL APPEARANCE RBC Morph Micro Appear 1+ MACROCYTOSIS Sodium 135 Potassium 3.3 L Chloride 102 Carbon Dioxide 22 Anion Gap 11.0 BUN 14 Creatinine 0.7 Estimated GFR (MDRD) 119 Glucose 116 H Calcium 9.5 Total Bilirubin 2.5 H AST 25 ALT 33 Alkaline Phosphatase 57 Total Protein 8.8 H Albumin 5.1 Globulin 3.7 Albumin/Globulin Ratio 1.4 Lipase 32 - Rads (name of study) Right upper quadrant ultrasound Radiology: Final report received, EMP read contemporaneously, See rad report PD MEDICAL DECISION MAKING - ED course Complexity details: reviewed results, re-evaluated patient, considered differential, d/w patient, d/w loss control consultant ED course: 30-year-old female with biliary colic that appears to be consistent with cholecystitis at this time. Elevated white blood cell count. Continued pain. Pain well controlled. Given IV Zosyn. Discussed the case with Dr. Dorantes, general surgery who will plan on taking the patient to the operating room tomorrow. This document was made in part using voice recognition software. While efforts are made to proofread this document, sound alike and grammatical errors may occur. IMPRESSION: Gallbladder sludge and cholelithiasis with no wall thickening or pericholecystic fluid but with a positive sonographic Francis sign. Findings are equivocal for cholecystitis. Departure - Departure Disposition: ED Transfer to [facility] Clinical Impression: Cholecystitis Condition: Stable Discharge Date/Time: 10/10/20 22:10
[2020-10-10] MEDS ORDERED: SODIUM CHLORIDE 0.9% 1,000 ML IV STA ×2 (18:37→21:06)
[2020-10-10] MEDS ORDERED: MORPHINE 2 MG/ML CARPUJECT IVP STA ×2 (18:37→19:56)
[2020-10-10] MEDS ORDERED: ONDANSETRON 4 MG/2 ML VIAL IVP STA (18:37)
--- NOTE | 2020-10-10 20:28 | Ultrasound Report ---
PROCEDURE: Abdomen Limited INDICATIONS: RUQ abd pain TECHNIQUE: Real-time focused scanning was performed of the abdomen, with image documentation. COMPARISON: None FINDINGS: The liver is normal in size and echotexture. No hepatic mass. The gallbladder contains layering sludge and stones. No gallbladder wall thickening or pericholecysti c fluid. Sonographic Francis's is negative. The common bile duct measures 3.5 mm. The pancreas head and body are normal. The pancreatic tail is not visualized. The right kidney has a normal size and cortical thickness. IMPRESSION: Gallbladder sludge and cholelithiasis with no wall thickening or pericholecystic fluid b ut with a positive sonographic Francis sign. Findings are equivocal for cholecystitis. Reviewed by: Franklin Zimmer on 10/10/2020 8:27 PM PDT Approved by: Franklin Zimmer on 10/10/2020 8:27 PM PDT Station ID: [id number]
[2020-10-10] MEDS ORDERED: HYDROmorphone 1 MG/ML CARPUJECT IVP STA (21:06)
[2020-10-10] MEDS ORDERED: PIPERACILLIN/TAZOBACTAM 3.375 GM in SODIUM CHLORIDE 0.9% MINIBAG 100 ML IV STA (21:06)
[2020-10-10] MEDS ORDERED: SODIUM CHLORIDE FLUSH 0.9% 10 ML SYRINGE IVP PRN (21:30)
[2020-10-10 22:39] LABS: GLUCOSE, URINE (UA) NEGATIVE (NEGATIVE); KETONES,URINE (UA) >=80 mg/dL (NEGATIVE); LEUKOCYTE ESTERASE, URINE NEGATIVE (NEGATIVE); NITRITE,URINE POSITIVE (NEGATIVE); OCCULT BLOOD,URINE TRACE-INTA (NEGATIVE); PH,URINE 6.5 PH (5.0-7.5); PROTEIN,URINE 100 mg/dL (NEGATIVE); UROBILINOGEN,URINE 4 E.U./dL (NORMAL)
[2020-10-10 22:52] LABS: BILIRUBIN,URINE MODERATE (NEGATIVE); CLARITY,URINE CLEAR (CLEAR); ICTOTEST,URINE POSITIVE
[2020-10-10 22:53] LABS: BACTERIA,URINE Few /HPF (None Seen); HCG UR QUAL NEGATIVE; MUCUS,URINE Few Strands; RBC,URINE 0-5 /HPF (0-5); SQUAMOUS EPITHELIAL CELL,UR FEW Squamous (<= Few); WBC,URINE 0-3 /HPF (0-5)
[2020-10-10 22:54] LABS: B. PARAPERTUSSIS- RESP PCR PAN NOT DETECTED; B. PERTUSSIS- RESP PCR PANEL NOT DETECTED; C. PNEUMONIAE- RESP PCR PANEL NOT DETECTED; CORONAVIRUS 229E-RESP PCR NOT DETECTED; CORONAVIRUS HKU1-RESP PCR NOT DETECTED; CORONAVIRUS NL63-RESP PCR NOT DETECTED; CORONAVIRUS OC43-RESP PCR NOT DETECTED; HUMAN METAPNEUMOVIRUS NOT DETECTED; INFLUENZA A- RESP PCR PANEL NOT DETECTED; INFLUENZA B - RESP PCR PANEL NOT DETECTED; M. PNEUMONIAE- RESP PCR PANEL NOT DETECTED; PARAINFLUENZA VIRUS 1 NOT DETECTED; PARAINFLUENZA VIRUS 2 NOT DETECTED; PARAINFLUENZA VIRUS 3 NOT DETECTED; PARAINFLUENZA VIRUS 4 NOT DETECTED; RHINOVIRUS/ENTEROVIRUS DETECTED; RSV- RESP PCR PANEL NOT DETECTED; SARS-CoV-2 -RESP PCR PANEL NOT DETECTED
[2020-10-10] MEDS: ACETAMINOPHEN 1,000 MG/100 ML 100 ML IV SCH (22:57)
[2020-10-10] MEDS: LACTATED RINGERS 1,000 ML IV SCH (22:58)
[2020-10-11] MEDS: SODIUM CHLORIDE FLUSH 0.9% 10 ML SYRINGE IVP SCH ×3 (00:41→18:52)
[2020-10-11] MEDS ORDERED: SODIUM CHLORIDE 0.9% 500 ML IV ONE (04:43)
[2020-10-11] MEDS: ONDANSETRON 4 MG/2 ML VIAL IVP PRN ×2 (04:53→20:48)
[2020-10-11] MEDS: PIPERACILLIN/TAZOBACTAM 3.375 GM in SODIUM CHLORIDE 0.9% MINIBAG 100 ML IV SCH ×3 (04:54→22:00)
[2020-10-11] MEDS: ACETAMINOPHEN 1,000 MG/100 ML 100 ML IV SCH ×3 (05:02→18:57)
[2020-10-11 05:50] LABS: BASOPHILS # (AUTO) 0.1 10^3/uL (0.0-0.1); BASOPHILS % (AUTO) 0.6 %; EOSINOPHILS # (AUTO) 0.1 10^3/uL (0.0-0.7); EOSINOPHILS % (AUTO) 0.9 %; HCT - HEMATOCRIT 31.4 % (37.0-47.0); HGB - HEMOGLOBIN 11.7 g/dL (12.0-16.0); LYMPHOCYTES # (AUTO) 2.2 10^3/uL (1.5-3.5); LYMPHOCYTES % (AUTO) 25.4 %; MEAN CORPUSCULAR HEMOGLOBIN 34.9 pg (27.0-31.0); MEAN CORPUSCULAR HGB CONC 37.3 g/dL (32.0-36.0); MEAN CORPUSCULAR VOLUME 93.7 fL (81.0-99.0); MEAN PLATELET VOLUME 10.6 fL (7.9-10.8); MONOCYTES # (AUTO) 0.5 10^3/uL (0.0-1.0); MONOCYTES % (AUTO) 5.4 %; NEUTROPHILS # (AUTO) 5.8 10^3/uL (1.5-6.6); NEUTROPHILS % (AUTO) 66.9 %; PLT - PLATELET COUNT 241 10^3/uL (130-450); RED BLOOD COUNT 3.35 10^6/uL (4.20-5.40); RED CELL DISTRIBUTION WIDTH 15.1 % (12.0-15.0); WHITE BLOOD COUNT 8.7 x10^3/uL (4.8-10.8)
[2020-10-11 06:00] LABS: ALBUMIN 4.1 g/dL (3.2-5.5); ALBUMIN/GLOBULIN RATIO 1.4 (1.0-2.2); BILIRUBIN,TOTAL 2.3 mg/dL (0.2-1.0); CALCIUM 8.9 mg/dL (8.5-10.3); CREATININE 0.6 mg/dL (0.4-1.0); POTASSIUM 3.3 mmol/L (3.5-5.0)
[2020-10-11] MEDS: HYDROmorphone 0.5 MG/0.5 ML SYRINGE IVP PRN ×7 (08:58→19:49)
[2020-10-11] MEDS: LACTATED RINGERS 1,000 ML IV SCH ×2 (09:03→15:32)
--- NOTE | 2020-10-11 09:22 | ANESTHESIA ---
Pre-Anesthesia VS, & Labs - Diagnosis cholelithiasis - Procedure laparoscopic cholecystectomy Vital Signs: Temp Pulse Resp BP Pulse Ox 37.1 C 62 18 147/74 H 100 10/11/20 09:00 10/11/20 09:00 10/11/20 09:00 10/11/20 09:00 10/11/20 09:00 Height: 5 ft 5 in Weight (kg): 83.3 kg Body Mass Index: 30.5 BMI Classification: Obese - NPO >8 hours - Is Patient ?: No - Lab Results Current Lab Results: Laboratory Tests 10/11/20 05:16: Sodium 138, Potassium 3.3 L, Chloride 107, Carbon Dioxide 22, Anion Gap 9.0, BUN 11, Creatinine 0.6, Estimated GFR (MDRD) 142, Glucose 101 H, Calcium 8.9, Total Bilirubin 2.3 H, AST 20, ALT 27, Alkaline Phosphatase 46, Total Protein 7.0, Albumin 4.1, Globulin 2.9, Albumin/Globulin Ratio 1.4 10/11/20 05:16: WBC 8.7, RBC 3.35 L, Hgb 11.7 L, Hct 31.4 L, MCV 93.7, MCH 34.9 H, MCHC 37.3 H, RDW 15.1 H, Plt Count 241, MPV 10.6, Neut # (Auto) 5.8, Lymph # (Auto) 2.2, [place] # (Auto) 0.5, Eos # (Auto) 0.1, Baso # (Auto) 0.1, Absolute Nucleated RBC 0.00, Nucleated RBC % 0.0 10/10/20 16:54: Sodium 135, Potassium 3.3 L, Chloride 102, Carbon Dioxide 22, Anion Gap 11.0, BUN 14, Creatinine 0.7, Estimated GFR (MDRD) 119, Glucose 116 H, Calcium 9.5, Total Bilirubin 2.5 H, AST 25, ALT 33, Alkaline Phosphatase 57, Total Protein 8.8 H, Albumin 5.1, Globulin 3.7, Albumin/Globulin Ratio 1.4, Lipase 32 10/10/20 16:54: WBC 12.2 H, RBC 4.02 L, Hgb 14.3, Hct 37.4, MCV 93.0, MCH 35.6 H , MCHC 38.2 H, RDW 14.8, Plt Count 293, MPV 10.5, Neut # (Auto) 10.1 H, Lymph # (Auto) 1.4 L, [place] # (Auto) 0.5, Eos # (Auto) 0.1, Baso # (Auto) 0.1, Absolute Nucleated RBC 0.00, Band Neuts % (Manual) Not Reportable, Abnorm Lymph % (Manual) Not Reportable, Nucleated RBC % 0.0, Neutrophils # (Manual) Not Reportable, Lymphocytes # (Manual) Not Reportable, Monocytes # (Manual) Not Reportable, Eosinophils # (Manual) Not Reportable, Basophils # (Manual) Not Reportable, Differential Comment MANUAL=AUTO DIFF, Manual Slide Review Indicated, Platelet Estimate NORMAL (130-450,000), Platelet Morphology NORMAL APPEARANCE, RBC Morph Micro Appear 1+ MACROCYTOSIS Fish Bones: 10/11/20 05:16 10/11/20 05:16 Home Medications and Allergies Active Medications Hydromorphone HCl (Hydromorphone 0.5 Mg/0.5 Ml Syringe) 0.5 mg IVP Q1H PRN PRN Reason: PAIN Last Admin: 10/11/20 08:58 Dose: 0.5 mg Documented by: Lactated Ringer's (Lr) 1,000 mls @ 100 mls/hr IV .Q10H [facility] Last Admin: 10/11/20 09:03 Dose: Not Given Documented by: Piperacillin Sod/Tazobactam (Sod 3.375 gm/ Sodium Chloride) 100 mls @ 25 mls/hr IV Q8H [facility] Last Infusion: 10/11/20 08:58 Dose: Infused Documented by: Acetaminophen (Ofirmev) 100 mls @ 400 mls/hr IV Q6H [facility] Last Infusion: 10/11/20 05:17 Dose: Infused Documented by: Ondansetron HCl (Ondansetron 4 Mg/2 Ml Vial) 4 mg IVP Q6HR PRN PRN Reason: Nausea / Vomiting Last Admin: 10/11/20 04:53 Dose: 4 mg Documented by: Sodium Chloride (Sodium Chloride Flush 0.9% 10 Ml Syringe) 10 ml IVP 0100,0900,1700 [facility] Last Admin: 10/11/20 09:03 Dose: 10 ml Documented by: Sodium Chloride (Sodium Chloride Flush 0.9% 10 Ml Syringe) 10 ml IVP PRN PRN PRN Reason: NEEDED PER PROVIDER ORDERS Allergies/Adverse Reactions: Allergies Allergy/AdvReac Type Severity Reaction Status Date / Time No Known Drug Allergies Allergy Verified 10/10/20 16:10 Anes History & Medical History - Anesthetic History Anesthesia Complications: reports: No previous complications - Medical History Cardiovascular: reports: None Pulmonary: reports: None Gastrointestinal: reports: None Urinary: reports: Kidney stones Neuro: reports: None Musculoskeletal: reports: None Endocrine/Autoimmune: reports: None Blood Disorders: reports: Anemia Skin: reports: None Smoking Status: Former smoker History of Cancer?: No - Surgical History Gynecologic: reports: section Exam General: Alert, Oriented x3, Cooperative Dental: WNL Mouth Opening: Greater than 4 Fingerbreadths Neck Mobility: Normal Mallampati classification: I Thyromental Distance: greater than 6 cm Respiratory: Lungs clear Cardiovascular: Regular rate Plan Anesthesia Type: General Consent for Procedure(s) Verified and Reviewed: Yes Code Status: Attempt Resuscitation ASA classification: 2-Mild systemic disease Is this case an emergency?: No
[2020-10-11] MEDS ORDERED: BUPIVACAINE 0.5%-EPI 1:200000 PF 30 ML VIAL ONE (11:26)
[2020-10-11] MEDS ORDERED: LIDOCAINE 1% 50 ML MDV ONE (11:26)
--- NOTE | 2020-10-11 13:05 | HISTORY & PHYSICAL EXAMINATION ---
HPI - Admitted From Admitted from: ED - History Obtained From History obtained from: Patient, Family Exam limitations: No limitations - History of Present Illness Severity at the worst: reports: Severe Pain Quality: reports: Aching, Cramping, Crushing Context-Pain started w/: reports: Eating Timing: reports: Constant Duration: reports: Days: (2) Improved with: reports: Nothing Worsened by: reports: Eating, Movement Associated symptoms: reports: Nausea, Vomiting HPI Comment/Other: 30-year-old woman with no other significant past medical history presented to the emergency room with 2 days of severe right upper quadrant abdominal pain associated with nausea and vomiting.She was seen and evaluated by the emergency room staff and found to have essentially normal labs with the exception of an elevated bilirubin.She has been afebrile at home. Ultrasound in the emergency room revealed stones and sludge but no pericholecystic fluid. She was admitted overnight for hydration and supportive care. Her acute symptoms have resolved and she is no longer in severe pain.Bilirubin has trended down today. 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: None : positive: Kidney stones HEENT: positive: None Psych: positive: None Musculoskeletal: positive: None Derm: positive: None MRSA Hx?: No - Past Surgical History /CORPORATE SECURITY OFFICER: positive: section Social & Family Hx - Social History Does the pt smoke?: No Smoking Status: Former smoker Does the pt drink ETOH?: Yes Does the pt have substance abuse?: Yes Substance Use and Type: Marijuana - POLST Patient has POLST: No Meds/Allgy - Home Medications Home Medications: Ambulatory Orders Medication Instructions Recorded Confirmed Benzonatate [Tessalon] 200 mg PO TID PRN #30 cap 10/08/20 Cetirizine HCl/Pseudoephedrine 1 each PO BID PRN #30 ea 10/08/20 [Zyrtec-D Tablet] - Allergies Allergies/Adverse Reactions: Allergies Allergy/AdvReac Type Severity Reaction Status Date / Time No Known Drug Allergies Allergy Verified 10/10/20 16:10 Review of Systems - Constitutional Constitutional: reports: Fatigue. denies: Fever, Chills - Gastrointestinal Gastrointestinal: reports: Abdominal pain, Nausea, Vomiting - Genitourinary Genitourinary: denies: Dysuria Exam - Vital Signs Reviewed Vital Signs: Yes Vital Signs: Vital Signs x48h Temp Pulse Resp BP Pulse Ox 10/11/20 09:00 37.1 C 62 18 147/74 H 100 10/11/20 05:08 36.9 C 73 17 119/54 L 99 - Physical Exam General Appearance: positive: Alert, Mild distress Eyes Bilateral: positive: Normal inspection, PERRL, EOMI ENT: positive: ENT inspection nml, Pharynx nml, No signs of dehydration Neck: positive: Nml inspection, No JVD Respiratory: positive: Chest non-tender, No respiratory distress, Breath sounds nml Cardiovascular: positive: Regular rate & rhythm, No murmur Peripheral Pulses: positive: 1+ Abdomen: positive: Nml bowel sounds, Tenderness (Right upper quadrant), Guarding (Voluntary). negative: Rebound Back: negative: CVA tenderness (R), CVA tenderness (L) Skin: positive: Color nml Extremities: positive: Nml appearance Neurologic/Psychiatric: positive: Oriented x3 Results - Lab Results Fish Bones: 10/11/20 05:16 10/11/20 05:16 Other Lab Results: Lab Results x24hrs 10/11/20 10/11/20 10/10/20 Range/Units 05:16 05:16 22:30 WBC 8.7 (4.8-10.8) x10^3/uL RBC 3.35 L (4.20-5.40) 10^6/uL Hgb 11.7 L (12.0-16.0) g/dL Hct 31.4 L (37.0-47.0) % MCV 93.7 (81.0-99.0) fL MCH 34.9 H (27.0-31.0) pg MCHC 37.3 H (32.0-36.0) g/dL RDW 15.1 H (12.0-15.0) % Plt Count 241 (130-450) 10^3/uL MPV 10.6 (7.9-10.8) fL Neut # (Auto) 5.8 (1.5-6.6) 10^3/uL Lymph # (Auto) 2.2 (1.5-3.5) 10^3/uL Green # (Auto) 0.5 (0.0-1.0) 10^3/uL Eos # (Auto) 0.1 (0.0-0.7) 10^3/uL Baso # (Auto) 0.1 (0.0-0.1) 10^3/uL Absolute Nucleated RBC 0.00 x10^3/uL Band Neuts % (Manual) Abnorm Lymph % (Manual) Nucleated RBC % 0.0 /100WBC Neutrophils # (Manual) Lymphocytes # (Manual) Monocytes # (Manual) Eosinophils # (Manual) Basophils # (Manual) Differential Comment Manual Slide Review Platelet Estimate (NORMAL) Platelet Morphology (NORMAL) RBC Morph Micro Appear (NORMAL) Sodium 138 (135-145) mmol/L Potassium 3.3 L (3.5-5.0) mmol/L Chloride 107 (101-111) mmol/L Carbon Dioxide 22 (21-32) mmol/L Anion Gap 9.0 (6-13) BUN 11 (6-20) mg/dL Creatinine 0.6 (0.4-1.0) mg/dL Estimated GFR (MDRD) 142 (>89) Glucose 101 H (70-100) mg/dL Calcium 8.9 (8.5-10.3) mg/dL Total Bilirubin 2.3 H (0.2-1.0) mg/dL AST 20 (10-42) IU/L ALT 27 (10-60) IU/L Alkaline Phosphatase 46 (42-121) IU/L Total Protein 7.0 (6.7-8.2) g/dL Albumin 4.1 (3.2-5.5) g/dL Globulin 2.9 (2.1-4.2) g/dL Albumin/Globulin Ratio 1.4 (1.0-2.2) Lipase (22-51) U/L Urine Color Urine Clarity (CLEAR) Urine pH (5.0-7.5) PH Ur Specific [place] (1.002-1.030) Urine Protein (NEGATIVE) mg/dL Urine Glucose (UA) (NEGATIVE) mg/dL Urine Ketones (NEGATIVE) mg/dL Urine Occult Blood (NEGATIVE) Urine Nitrite (NEGATIVE) Urine Bilirubin (NEGATIVE) Urine Urobilinogen (NORMAL) E.U./dL Ur Leukocyte Esterase (NEGATIVE) Urine RBC (0-5) /HPF Urine WBC (0-5) /HPF Ur Squamous Epith Cells (<= Few) Urine Bacteria (None Seen) /HPF Urine Mucus Ur Microscopic Review Urine Culture Comments Urine HCG, Qual NEGATIVE Nasal Adenovirus (PCR) Nasal B. parapertussis DNA (PCR) Nasal Coronavir 229E PCR Nasal Coronavir HKU1 PCR Nasal Coronavir NL63 PCR Nasal Coronavir OC43 PCR Nasal Enterovir/Rhinovir PCR Nasal Influenza B PCR Nasal Influenza A PCR Nasal Parainfluen 1 PCR Nasal Parainfluen 2 PCR Nasal Parainfluen 3 PCR Nasal Parainfluen 4 PCR Nasal RSV (PCR) Nasal B.pertussis DNA PCR Nasal C.pneumoniae (PCR) Shoaib Human Metapneumo PCR Nasal M.pneumoniae (PCR) Nasal SARS-CoV-2 (PCR) 10/10/20 10/10/20 10/10/20 Range/Units 22:30 21:55 16:54 WBC (4.8-10.8) x10^3/uL RBC (4.20-5.40) 10^6/uL Hgb (12.0-16.0) g/dL Hct (37.0-47.0) % MCV (81.0-99.0) fL MCH (27.0-31.0) pg MCHC (32.0-36.0) g/dL RDW (12.0-15.0) % Plt Count (130-450) 10^3/uL MPV (7.9-10.8) fL Neut # (Auto) (1.5-6.6) 10^3/uL Lymph # (Auto) (1.5-3.5) 10^3/uL Green # (Auto) (0.0-1.0) 10^3/uL Eos # (Auto) (0.0-0.7) 10^3/uL Baso # (Auto) (0.0-0.1) 10^3/uL Absolute Nucleated RBC x10^3/uL Band Neuts % (Manual) Abnorm Lymph % (Manual) Nucleated RBC % /100WBC Neutrophils # (Manual) Lymphocytes # (Manual) Monocytes # (Manual) Eosinophils # (Manual) Basophils # (Manual) Differential Comment Manual Slide Review Platelet Estimate (NORMAL) Platelet Morphology (NORMAL) RBC Morph Micro Appear (NORMAL) Sodium 135 (135-145) mmol/L Potassium 3.3 L (3.5-5.0) mmol/L Chloride 102 (101-111) mmol/L Carbon Dioxide 22 (21-32) mmol/L Anion Gap 11.0 (6-13) BUN 14 (6-20) mg/dL Creatinine 0.7 (0.4-1.0) mg/dL Estimated GFR (MDRD) 119 (>89) Glucose 116 H (70-100) mg/dL Calcium 9.5 (8.5-10.3) mg/dL Total Bilirubin 2.5 H (0.2-1.0) mg/dL AST 25 (10-42) IU/L ALT 33 (10-60) IU/L Alkaline Phosphatase 57 (42-121) IU/L Total Protein 8.8 H (6.7-8.2) g/dL Albumin 5.1 (3.2-5.5) g/dL Globulin 3.7 (2.1-4.2) g/dL Albumin/Globulin Ratio 1.4 (1.0-2.2) Lipase 32 (22-51) U/L Urine Color BROWN Urine Clarity CLEAR (CLEAR) Urine pH 6.5 (5.0-7.5) PH Ur Specific [place] >=1.030 H (1.002-1.030) Urine Protein 100 H (NEGATIVE) mg/dL Urine Glucose (UA) NEGATIVE (NEGATIVE) mg/dL Urine Ketones >=80 H (NEGATIVE) mg/dL Urine Occult Blood TRACE-INTA (NEGATIVE) Urine Nitrite POSITIVE H (NEGATIVE) Urine Bilirubin MODERATE H (NEGATIVE) Urine Urobilinogen 4 H (NORMAL) E.U./dL Ur Leukocyte Esterase NEGATIVE (NEGATIVE) Urine RBC 0-5 (0-5) /HPF Urine WBC 0-3 (0-5) /HPF Ur Squamous Epith Cells FEW Squamous (<= Few) Urine Bacteria Few (None Seen) /HPF Urine Mucus Few Strands Ur Microscopic Review INDICATED Urine Culture Comments INDICATED Urine HCG, Qual Nasal Adenovirus (PCR) NOT DETECTED Nasal B. parapertussis DNA (PCR) NOT DETECTED Nasal Coronavir 229E PCR NOT DETECTED Nasal Coronavir HKU1 PCR NOT DETECTED Nasal Coronavir NL63 PCR NOT DETECTED Nasal Coronavir OC43 PCR NOT DETECTED Nasal Enterovir/Rhinovir PCR DETECTED A Nasal Influenza B PCR NOT DETECTED Nasal Influenza A PCR NOT DETECTED Nasal Parainfluen 1 PCR NOT DETECTED Nasal Parainfluen 2 PCR NOT DETECTED Nasal Parainfluen 3 PCR NOT DETECTED Nasal Parainfluen 4 PCR NOT DETECTED Nasal RSV (PCR) NOT DETECTED Nasal B.pertussis DNA PCR NOT DETECTED Nasal C.pneumoniae (PCR) NOT DETECTED Shoaib Human Metapneumo PCR NOT DETECTED Nasal M.pneumoniae (PCR) NOT DETECTED Nasal SARS-CoV-2 (PCR) NOT DETECTED 10/10/20 Range/Units 16:54 WBC 12.2 H (4.8-10.8) x10^3/uL RBC 4.02 L (4.20-5.40) 10^6/uL Hgb 14.3 (12.0-16.0) g/dL Hct 37.4 (37.0-47.0) % MCV 93.0 (81.0-99.0) fL MCH 35.6 H (27.0-31.0) pg MCHC 38.2 H (32.0-36.0) g/dL RDW 14.8 (12.0-15.0) % Plt Count 293 (130-450) 10^3/uL MPV 10.5 (7.9-10.8) fL Neut # (Auto) 10.1 H (1.5-6.6) 10^3/uL Lymph # (Auto) 1.4 L (1.5-3.5) 10^3/uL Green # (Auto) 0.5 (0.0-1.0) 10^3/uL Eos # (Auto) 0.1 (0.0-0.7) 10^3/uL Baso # (Auto) 0.1 (0.0-0.1) 10^3/uL Absolute Nucleated RBC 0.00 x10^3/uL Band Neuts % (Manual) Not Reportable Abnorm Lymph % (Manual) Not Reportable Nucleated RBC % 0.0 /100WBC Neutrophils # (Manual) Not Reportable Lymphocytes # (Manual) Not Reportable Monocytes # (Manual) Not Reportable Eosinophils # (Manual) Not Reportable Basophils # (Manual) Not Reportable Differential Comment MANUAL=AUTO DIFF Manual Slide Review Indicated Platelet Estimate NORMAL (130-450,000) (NORMAL) Platelet Morphology NORMAL APPEARANCE (NORMAL) RBC Morph Micro Appear 1+ MACROCYTOSIS (NORMAL) Sodium (135-145) mmol/L Potassium (3.5-5.0) mmol/L Chloride (101-111) mmol/L Carbon Dioxide (21-32) mmol/L Anion Gap (6-13) BUN (6-20) mg/dL Creatinine (0.4-1.0) mg/dL Estimated GFR (MDRD) (>89) Glucose (70-100) mg/dL Calcium (8.5-10.3) mg/dL Total Bilirubin (0.2-1.0) mg/dL AST (10-42) IU/L ALT (10-60) IU/L Alkaline Phosphatase (42-121) IU/L Total Protein (6.7-8.2) g/dL Albumin (3.2-5.5) g/dL Globulin (2.1-4.2) g/dL Albumin/Globulin Ratio (1.0-2.2) Lipase (22-51) U/L Urine Color Urine Clarity (CLEAR) Urine pH (5.0-7.5) PH Ur Specific [place] (1.002-1.030) Urine Protein (NEGATIVE) mg/dL Urine Glucose (UA) (NEGATIVE) mg/dL Urine Ketones (NEGATIVE) mg/dL Urine Occult Blood (NEGATIVE) Urine Nitrite (NEGATIVE) Urine Bilirubin (NEGATIVE) Urine Urobilinogen (NORMAL) E.U./dL Ur Leukocyte Esterase (NEGATIVE) Urine RBC (0-5) /HPF Urine WBC (0-5) /HPF Ur Squamous Epith Cells (<= Few) Urine Bacteria (None Seen) /HPF Urine Mucus Ur Microscopic Review Urine Culture Comments Urine HCG, Qual Nasal Adenovirus (PCR) Nasal B. parapertussis DNA (PCR) Nasal Coronavir 229E PCR Nasal Coronavir HKU1 PCR Nasal Coronavir NL63 PCR Nasal Coronavir OC43 PCR Nasal Enterovir/Rhinovir PCR Nasal Influenza B PCR Nasal Influenza A PCR Nasal Parainfluen 1 PCR Nasal Parainfluen 2 PCR Nasal Parainfluen 3 PCR Nasal Parainfluen 4 PCR Nasal RSV (PCR) Nasal B.pertussis DNA PCR Nasal C.pneumoniae (PCR) Shoaib Human Metapneumo PCR Nasal M.pneumoniae (PCR) Nasal SARS-CoV-2 (PCR) - Diagnostic Imaging Results Diagnostic Imaging Results: positive: Final report reviewed Diagnostic Imaging Results Comments: Ultrasound as noted in HPI with the addition of a sonographic Francis sign. Impression/Plan - Problem List Problem List: Symptomatic cholelithiasis and cholecystitis in the setting of a healthy 30-yea r-old lady with no other medical problems. We have discussed the function of the gallbladder and the changes one might experience once it is removed today with both she and her significant other. We discussed the risks and benefits of cholecystectomy and the patient is expressed both verbal and written consent to complete the procedure.
[2020-10-11] MEDS ORDERED: MIDAZOLAM 2 MG/2 ML VIAL ONE (13:15)
[2020-10-11] MEDS ORDERED: fentaNYL 100 MCG/2 ML VIAL ONE ×2 (13:15→13:53)
[2020-10-11] MEDS ORDERED: DEXAMETHASONE 4 MG/ML VIAL ONE (13:42)
[2020-10-11] MEDS ORDERED: ONDANSETRON 4 MG/2 ML VIAL ONE (13:42)
[2020-10-11] MEDS ORDERED: LIDOCAINE-MPF 2% 5 ML VIAL ONE (13:42)
[2020-10-11] MEDS ORDERED: PROPOFOL 200 MG/20 ML VIAL IVP ONE (13:42)
[2020-10-11] MEDS ORDERED: KETOROLAC 30 MG/ML VIAL ONE (13:43)
[2020-10-11] MEDS ORDERED: ACETAMINOPHEN 1,000 MG/100 ML 100 ML IV ONE (13:43)
[2020-10-11] MEDS ORDERED: LIDOCAINE 1% 50 ML MDV SUBQ ONE (13:51)
[2020-10-11] MEDS ORDERED: BUPIVACAINE 0.5%-EPI 1:200000 PF 30 ML VIAL SUBQ ONE (13:51)
[2020-10-11] MEDS ORDERED: METOPROLOL 5 MG/5 ML VIAL IVP ONE (14:03)
[2020-10-11] MEDS ORDERED: METOCLOPRAMIDE 10 MG/2 ML VIAL IVP PRN ×2 (14:05→17:40)
[2020-10-11] MEDS ORDERED: ATROPINE ABBOJECT 1 MG/10 ML SYRINGE IVP PRN (14:05)
[2020-10-11] MEDS ORDERED: fentaNYL 100 MCG/2 ML VIAL IVP PRN (14:05)
[2020-10-11] MEDS ORDERED: NALOXONE 0.4 MG/ML VIAL IVP PRN (14:05)
[2020-10-11] MEDS ORDERED: MORPHINE 2 MG/ML CARPUJECT IVP PRN (14:05)
[2020-10-11] MEDS ORDERED: ONDANSETRON 4 MG/2 ML VIAL IVP PRN ×2 (14:05→14:23)
[2020-10-11] MEDS ORDERED: ePHEDrine 50 MG/ML VIAL IVP PRN (14:05)
[2020-10-11] MEDS ORDERED: SUGAMMADEX 200 MG/2 ML VIAL IVP ONE (14:07)
[2020-10-11] MEDS ORDERED: oxyCODONE 5 MG TABLET PO PRN (14:23)
[2020-10-11] MEDS ORDERED: ACETAMINOPHEN 325 MG TABLET PO PRN (14:23)
[2020-10-11] MEDS ORDERED: IBUPROFEN 600 MG TABLET PO PRN (14:23)
--- NOTE | 2020-10-11 14:23 | OPERATIVE REPORT ---
Operative Report - General Procedure Date: 10/11/20 Planned Procedure: Laparoscopic cholecystectomy with indicated procedures Pre-Op Diagnosis: Acute cholelithiasis and cholecystitis Procedure Performed: Laparoscopic cholecystectomy Post Op Diagnosis: Cholelithiasis and cholecystitis - Procedure Note Primary Surgeon: Jose E Anesthesia Provider: FREDERIC Almeida Anesthesia Technique: General ET tube Pathology: Gall bladder in formalin to path Estimated Blood Loss (mL): 5 Findings: Distended and thin walled gall bladder containing sludge and small stones Complications: None apparent - Other Other Information/Narrative: After obtaining informed consent the patient is brought to the operating room and placed in the supine position on the operating table. Following successful induction of general endotracheal anesthesia, appropriate padding of all bony prominences, and placement of appropriate monitors, the abdomen was prepped and draped in the standard surgical fashion. A timeout was held per scope protocol. All elements of the surgical safety checklist were followed before, during, and after the procedure. Following infiltration with local anesthetic to create a field block, an incision was created inferior to the umbilicus and carried down through the skin and subcutaneous tissue to reveal the fascia below. 2-0 Vicryl retention sutures were placed on either side of the midline and the abdomen was entered under direct vision using a 15 blade scalpel. A 10 mm blunt Figueroa balloon trocar was placed in the abdominal cavity and it was insufflated to 15 mmHg pressure. The patient was placed in reverse Trendelenburg position with the left side rotated toward the floor. A second trocar, 5 mm, was placed in the midepigastrium under direct vision and after anesthetization of the surrounding skin.A third trocar, also 5 mm was placed in the right upper quadrant for retraction of the gallbladder and a fourth 1 just medial to that as a working port as well. The gallbladder was examined. It was adherent to the surrounding structures including the omentum and the right colon. These structures were carefully dissected free from the surface of the gallbladder using a mixture of blunt and sharp dissection. The fundus of the gallbladder was then grasped and elevated up over the liver revealing the cholecysto hepatoduodenal ligament. The neck of the gallbladder was retracted laterally and the cystic duct and artery were carefully identified. The common duct was visualized but not skeletonized. The cystic duct was clipped 3 times proximally and once distally and divided, the cystic artery was clipped twice proximally, once distally, and divided. The gallbladder was then liberated from its bed in the liver using cautery. It was placed in an Endo Catch bag and removed via the umbilical port with a camera in the epigastric position. The camera was replaced in the umbilical position and the abdomen was checked for hemostasis. It was irrigated with warm saline solution and aspirated free of all fluid and particulate matter. The trochars were then removed under direct vision and the abdomen desufflated. The umbilical incision was closed with interrupted Vicryl suture and Monocryl was placed in all of the skin incisions. All sponge, needle, and instrument counts were correct at the conclusion of the case. The patient was allowed awaken from anesthesia without difficulty and taken to the postanesthesia care unit in good condition.
[2020-10-11] MEDS ORDERED: LACTATED RINGERS 1,000 ML IV ONE ×2 (14:34→15:05)
[2020-10-11] MEDS ORDERED: HYDROmorphone 1 MG/ML CARPUJECT ONE (14:48)
[2020-10-11] MEDS ORDERED: LACTATED RINGERS 1,000 ML IV SCH (15:00)
--- NOTE | 2020-10-11 15:25 | ANESTHESIA POST OP EVALUATION ---
Anesthesia Post Eval - Post Anesthesia Eval Vitals: Last Vital Signs Temp 37 C 10/11/20 15:05 Pulse 84 10/11/20 15:05 Resp 16 10/11/20 15:05 BP 130/86 H 10/11/20 15:05 Pulse Ox 100 10/11/20 15:05 CV Function Including HR & BP: Stable Pain Control: Satisfactory Nausea & Vomiting: Negative Mental Status: Baseline Respiratory Status: Airway Patent Hydration Status: Satisfactory Anesthesia Complications: None
[2020-10-11] MEDS ORDERED: LORazepam 2 MG/ML VIAL IVP ONE (17:45)
[2020-10-11 22:05] VITALS: BP 134/80
== END 2020-10-11 22:05 | disposition home or self-care (01) ==
LOC: ED 16:06 → MS2 21:30 → SDS 21:30
PROVIDERS: ATTEND Surgery
PROC: 0FT44ZZ Resection of Gallbladder, Percutaneous Endoscopic Approach (ICD-10-PCS; principal; 2020-10-10)
DX: K80.10 Calculus of gallbladder with chronic cholecystitis without obstruction (principal); Z87.891 Personal history of nicotine dependence; Z72.89 Other problems related to lifestyle; E66.9 Obesity, unspecified; Z68.30 Body mass index [BMI] 30.0-30.9, adult; Z20.822 Contact with and (suspected) exposure to COVID-19
CPT/HCPCS: 0202U; 36415; 47562; 76705; 80053; 81001; 81025; 83690; 85025; 87086; 96374; 96375; 96376; 99285; A9270; J0131; J1170; J2765; J7120; 81003

== ENCOUNTER 2021-01-13 15:00 | Outpatient (CLI) | payer MEDICAID | END 2021-01-13 15:01 | disposition home or self-care (01) | LOC: LAB.R 15:00 | PROVIDERS: ATTEND Nurse Practitioner Obstetrics & Gynecology | DX: Z53.9 Procedure and treatment not carried out, unspecified reason (principal) | CPT/HCPCS: 87661; 87801 ==

== ENCOUNTER 2021-01-25 10:45 | Outpatient (CLI) | payer MEDICAID ==
[2021-01-25 18:52] LABS: CHLAMYDIA TRACHOMATIS DNA NEGATIVE (NEGATIVE); NEISSERIA GONORRHOEAE DNA NEGATIVE (NEGATIVE); TRICHOMONAS VAGINALIS DNA NEGATIVE (NEGATIVE)
== END 2021-01-25 23:59 | disposition home or self-care (01) ==
LOC: LAB 10:45
PROVIDERS: ATTEND Obstetrics & Gynecology
DX: Z11.3 Encounter for screening for infections with a predominantly sexual mode of transmission (principal)
CPT/HCPCS: 87491; 87591; 87661

== ENCOUNTER 2021-05-12 14:55 | Outpatient (CLI) | payer MEDICAID ==
[2021-05-12 16:07] LABS: BILIRUBIN,URINE NEGATIVE (NEGATIVE); GLUCOSE, URINE (UA) NEGATIVE (NEGATIVE); KETONES,URINE (UA) NEGATIVE (NEGATIVE); LEUKOCYTE ESTERASE, URINE SMALL (NEGATIVE); NITRITE,URINE NEGATIVE (NEGATIVE); OCCULT BLOOD,URINE NEGATIVE (NEGATIVE); PROTEIN,URINE NEGATIVE (NEGATIVE); UROBILINOGEN,URINE 1 (NORMAL) E.U./dL (NORMAL)
[2021-05-12 16:09] LABS: CLARITY,URINE HAZY (CLEAR)
[2021-05-12 16:19] LABS: RBC,URINE 0-5 /HPF (0-5); SQUAMOUS EPITHELIAL CELL,UR MANY Squamous (<= Few); WBC,URINE >25 /HPF (0-5)
[2021-05-12 16:20] LABS: BACTERIA,URINE Few /HPF (None Seen); MUCUS,URINE Few Strands
[2021-05-12 22:00] LABS: BACTERIAL VAGINOSIS DNA POSITIVE (NEGATIVE); CANDIDA GLABRATA DNA NEGATIVE (NEGATIVE); CANDIDA GROUP DNA NEGATIVE (NEGATIVE); CANDIDA KRUSEI DNA NEGATIVE (NEGATIVE); TRICHOMONAS VAGINALIS DNA POSITIVE (NEGATIVE)
[2021-05-12 23:59] LABS: CHLAMYDIA TRACHOMATIS DNA NEGATIVE (NEGATIVE); NEISSERIA GONORRHOEAE DNA NEGATIVE (NEGATIVE)
[2021-05-13 00:02] LABS: TRICHOMONAS VAGINALIS DNA POSITIVE (NEGATIVE)
== END 2021-05-12 23:59 | disposition home or self-care (01) ==
LOC: LAB.WC 14:55
PROVIDERS: ATTEND Obstetrics & Gynecology
DX: L29.8 Other pruritus (principal)
CPT/HCPCS: 81001; 87086; 87491; 87591; 87661; 87801

== ENCOUNTER 2021-07-27 08:00 | Outpatient (CLI) | payer MEDICAID ==
[2021-07-29 00:15] LABS: CHLAMYDIA TRACHOMATIS DNA NEGATIVE (NEGATIVE); NEISSERIA GONORRHOEAE DNA NEGATIVE (NEGATIVE); TRICHOMONAS VAGINALIS DNA NEGATIVE (NEGATIVE)
== END 2021-07-27 23:59 | disposition home or self-care (01) ==
LOC: LAB.WC 08:00
PROVIDERS: ATTEND Obstetrics & Gynecology
DX: Z11.3 Encounter for screening for infections with a predominantly sexual mode of transmission (principal)
CPT/HCPCS: 87491; 87591; 87661

== ENCOUNTER 2021-08-01 06:45 | Outpatient (CLI) | payer MEDICAID ==
--- NOTE | 2021-08-01 11:29 | Ultrasound Report ---
PROCEDURE: OB First Trimester INDICATIONS: TWIN OUTSIDE/PRIOR DATING DATA: Last menstrual period (LMP): 04/27/2021. LMP-based estimated date of delivery (KLEVER): 02/01/2022. First dating scan (date and location): 08/01/2021. Estimated date of delivery (KLEVER) from first dating scan: 01/25/2022. TECHNIQUE: Real-time scanning was performed of the fetuses, with image documentation and biometric measurements. COMPARISON: None FINDINGS: General: An intrauterine dichorionic-diamniotic twin is present, as evidenced by separate placentas, differing sexes, or an intervening membrane of greater than 2 mm. Composite amniotic fluid index: Within normal limits Maternal cervical canal: 4.4 cm; normal length is 2.5 cm or more. FETUS A: Fetus is located on the maternal right side, and is in breech presentation. Largest amniotic fluid pocket: Within normal limits Placental position is anterior, without previa. heart rate: 178 beats per minute. biometrics: [place]-rump length: 8.3 cm Composite gestational age from present scan: 14 weeks 2 days FETUS B: Fetus is located on the maternal left side, and is in breech presentation. Largest amniotic fluid pocket: Within normal limits Placental position is anterior without previa. heart rate: 160 beats per minute. biometrics: [place]-rump length: 8.9 cm 14 weeks 5 days Composite gestational age from present scan: 14 weeks 5 days IMPRESSION: Dichorionic diamnionic twin intrauterine live . Fetus a has a gestational age of 14 weeks 2 days. Fetus B has a gestational age of 14 weeks 5 days. Recommend follow-up imaging at 20-22 weeks for dates and anatomy. Reviewed by: Court Chavez MD on 08/01/2021 11:27 AM PDT Approved by: Court Chavez MD on 08/01/2021 11:27 AM PDT Station ID: [id number]
--- NOTE | 2021-08-01 11:29 | Ultrasound Report ---
PROCEDURE: OB First Trimester Addl Fetus INDICATIONS: TWIN OUTSIDE/PRIOR DATING DATA: Last menstrual period (LMP): . LMP-based estimated date of delivery (KLEVER): . First dating scan (date and location): . Estimated date of delivery (KLEVER) from first dating scan: . The below data below was generated using the KLEVER of TECHNIQUE: Real-time scanning was performed of the fetuses and maternal pelvic organs, with image documentation. Endovaginal scanning: Performed for better visualization of the fetuses and maternal adnexal structu res. COMPARISON: None. FINDINGS: General: An intrauterine dichorionic-diamniotic twin is present, as evidenced by separate placentas, differing sexes, or an intervening membrane of greater than 2 mm. Composite amniotic fluid index: Within normal limits Maternal cervical canal: 4.4 cm; normal length is 2.5 cm or more. FETUS A: Fetus is located on the maternal right side, and is in breech presentation. Largest amniotic fluid pocket: Within normal limits Placental position is anterior, without previa. heart rate: 178 beats per minute. biometrics: [place]-rump length: 8.3 cm Composite gestational age from present scan: 14 weeks 2 days FETUS B: Fetus is located on the maternal left side, and is in breech presentation. Largest amniotic fluid pocket: Within normal limits Placental position is anterior without previa. heart rate: 160 beats per minute. biometrics: [place]-rump length: 8.9 cm 14 weeks 5 days Composite gestational age from present scan: 14 weeks 5 days IMPRESSION: Dichorionic diamnionic twin intrauterine live . Fetus a has a gestational age of 14 weeks 2 days. Fetus B has a gestational age of 14 weeks 5 days. Recommend follow-up imaging at 20-22 weeks for dates and anatomy. Reviewed by: Court Chavez MD on 08/01/2021 11:27 AM PDT Approved by: Court Chavez MD on 08/01/2021 11:27 AM PDT Station ID: [id number]
== END 2021-08-01 06:46 | disposition home or self-care (01) ==
LOC: DI 06:45
PROVIDERS: ATTEND Nurse Practitioner Obstetrics & Gynecology
DX: O30.042 Twin pregnancy, dichorionic/diamniotic, second trimester (principal); Z3A.14 14 weeks gestation of pregnancy

== ENCOUNTER 2021-08-02 06:16 | Emergency (ER) | payer MEDICAID ==
[2021-08-02] MEDS ORDERED: SODIUM CHLORIDE 0.9% 1,000 ML IV STA (07:07)
[2021-08-02] MEDS ORDERED: ONDANSETRON 4 MG/2 ML VIAL IVP STA (07:07)
--- NOTE | 2021-08-02 07:22 | ED Physician Documentation ---
PD HPI DYSPNEA - Stated complaint Stated Complaint: SOA/DIZZY - Chief complaint Chief Complaint: Resp - Additional information Additional information: Patient is a 31-year-old female,G4, P3 presenting to the emergency department today with dizziness, nausea and shortness of breath. Reports symptoms ongoing since Saturday. States that this started acutely while at work. Denies any associated chest pain. Does report vomiting at home. Denies fever, known sick contacts, abdominal pain, vaginal bleeding, dysuria, complications with previous pregnancies. Denies travel, hospitalizations, calf swelling, history of blood clots. 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 INTELLIGENCE SUPERINTENDENT: None : Kidney stones HEENT: None Psych: None Musculoskeletal: None Derm: None - Past Surgical History Past Surgical History: Yes /SIGNALS INTELLIGENCE SUPERINTENDENT: section - Present Medications Home Medications: Ambulatory Orders Medication Instructions Recorded Confirmed Benzonatate [Tessalon] 200 mg PO TID PRN #30 cap 10/08/20 Cetirizine HCl/Pseudoephedrine 1 each PO BID PRN #30 ea 10/08/20 [Zyrtec-D Tablet] Docusate Sodium 100Mg Capsule 200 mg PO DAILY #30 10/11/20 [Colace 100Mg Capsule] Ondansetron Odt [Zofran Odt] 4 mg TL Q6H PRN #10 tablet 10/11/20 oxyCODONE [Roxicodone] 5 mg PO Q4H PRN #20 tablet 10/11/20 Iron Fumarate/Vit C/Vit B12/FA 1 each PO DAILY #30 cap 08/02/21 [Hematogen Forte Softgel] Ondansetron Odt [Zofran] 4 mg TL Q6H PRN #10 tablet 08/02/21 - Allergies Allergies/Adverse Reactions: Allergies Allergy/AdvReac Type Severity Reaction Status Date / Time No Known Drug Allergies Allergy Verified 08/02/21 06:33 - Social History Does the pt smoke?: No Smoking Status: Never smoker Does the pt drink ETOH?: Yes Does the pt have substance abuse?: Yes - Immunizations Immunizations are current?: Yes - POLST Patient has POLST: No PD ED PE NORMAL - Vitals Vital signs reviewed: Yes (Tachycardic) - General General: Alert and oriented X 3 - HEENT HEENT: Atraumatic, PERRL - Neck Neck: Supple, no meningeal sign - Cardiac Cardiac: RRR, No gallop - Respiratory Respiratory: No respiratory distress, Clear bilaterally - Abdomen Abdomen: Normal bowel sounds, Non tender - Back Back: No CVA TTP, No spinal TTP - Derm Derm: Normal color - Extremities Extremities: No deformity - Neuro Neuro: Alert and oriented X 3, telemarketing fundraiser 2-12 intact, No motor deficit, No sensory deficit Results - Vitals Vitals: Vital Signs - 24 hr 08/02/21 08/02/21 08/02/21 06:30 06:35 08:31 Temperature 36.4 C L Heart Rate 107 H 98 101 H Respiratory 16 16 25 H Rate Blood Pressure 117/67 106/66 O2 Saturation 100 98 99 08/02/21 09:26 Temperature 36.6 C Heart Rate 104 H Respiratory 18 Rate Blood Pressure 120/70 O2 Saturation 99 Oxygen O2 Source Room air - EKG (time done) 0634 Rate: Rate (enter#) (103) Rhythm: NSR Ashley: Normal Intervals: Normal NV QRS: Normal Ischemia: Normal ST segments Computer interpretation: Agree with computer - Labs Labs: Laboratory Tests 08/02/21 08/02/21 08/02/21 07:16 07:16 07:16 WBC 8.6 RBC 2.62 L Hgb 9.3 L Hct 24.3 L MCV 92.7 MCH 35.5 H MCHC 38.3 H RDW 17.7 H Plt Count 237 MPV 10.3 Neut # (Auto) 7.1 H Lymph # (Auto) 1.1 L Lyman # (Auto) 0.3 Eos # (Auto) 0.0 Baso # (Auto) 0.0 Absolute Nucleated RBC 0.00 Nucleated RBC % 0.0 D-Dimer Sodium 134 L Potassium 3.4 L Chloride 103 Carbon Dioxide 21 Anion Gap 10.0 BUN 5 L Creatinine 0.5 Estimated GFR (MDRD) 174 Glucose 166 H Calcium 8.9 Total Bilirubin 1.2 H AST 21 ALT 20 Alkaline Phosphatase 47 Troponin I High Sens < 2.3 L Total Protein 6.3 L Albumin 3.3 Globulin 3.0 Albumin/Globulin Ratio 1.1 Lipase 32 TSH Urine Color Urine Clarity Urine pH Ur Specific [place] Urine Protein Urine Glucose (UA) Urine Ketones Urine Occult Blood Urine Nitrite Urine Bilirubin Urine Urobilinogen Ur Leukocyte Esterase Urine RBC Urine WBC Ur Squamous Epith Cells Urine Bacteria Ur Microscopic Review Urine Culture Comments Nasal Adenovirus (PCR) Nasal B. parapertussis DNA (PCR) Nasal Coronavir 229E PCR Nasal Coronavir HKU1 PCR Nasal Coronavir NL63 PCR Nasal Coronavir OC43 PCR Nasal Enterovir/Rhinovir PCR Nasal Influenza B PCR Nasal Influenza A PCR Nasal Parainfluen 1 PCR Nasal Parainfluen 2 PCR Nasal Parainfluen 3 PCR Nasal Parainfluen 4 PCR Nasal RSV (PCR) Nasal B.pertussis DNA PCR Nasal C.pneumoniae (PCR) Shoaib Human Metapneumo PCR Nasal M.pneumoniae (PCR) Nasal SARS-CoV-2 (PCR) 08/02/21 08/02/21 08/02/21 07:16 07:30 07:31 WBC RBC Hgb Hct MCV MCH MCHC RDW Plt Count MPV Neut # (Auto) Lymph # (Auto) Lyman # (Auto) Eos # (Auto) Baso # (Auto) Absolute Nucleated RBC Nucleated RBC % D-Dimer < 200.0 L Sodium Potassium Chloride Carbon Dioxide Anion Gap BUN Creatinine Estimated GFR (MDRD) Glucose Calcium Total Bilirubin AST ALT Alkaline Phosphatase Troponin I High Sens Total Protein Albumin Globulin Albumin/Globulin Ratio Lipase TSH 0.08 L Urine Color Urine Clarity Urine pH Ur Specific [place] Urine Protein Urine Glucose (UA) Urine Ketones Urine Occult Blood Urine Nitrite Urine Bilirubin Urine Urobilinogen Ur Leukocyte Esterase Urine RBC Urine WBC Ur Squamous Epith Cells Urine Bacteria Ur Microscopic Review Urine Culture Comments Nasal Adenovirus (PCR) NOT DETECTED Nasal B. parapertussis DNA (PCR) NOT DETECTED Nasal Coronavir 229E PCR NOT DETECTED Nasal Coronavir HKU1 PCR NOT DETECTED Nasal Coronavir NL63 PCR NOT DETECTED Nasal Coronavir OC43 PCR NOT DETECTED Nasal Enterovir/Rhinovir PCR NOT DETECTED Nasal Influenza B PCR NOT DETECTED Nasal Influenza A PCR NOT DETECTED Nasal Parainfluen 1 PCR NOT DETECTED Nasal Parainfluen 2 PCR NOT DETECTED Nasal Parainfluen 3 PCR NOT DETECTED Nasal Parainfluen 4 PCR NOT DETECTED Nasal RSV (PCR) NOT DETECTED Nasal B.pertussis DNA PCR NOT DETECTED Nasal C.pneumoniae (PCR) NOT DETECTED Shoaib Human Metapneumo PCR NOT DETECTED Nasal M.pneumoniae (PCR) NOT DETECTED Nasal SARS-CoV-2 (PCR) NOT DETECTED 08/02/21 07:44 WBC RBC Hgb Hct MCV MCH MCHC RDW Plt Count MPV Neut # (Auto) Lymph # (Auto) Lyman # (Auto) Eos # (Auto) Baso # (Auto) Absolute Nucleated RBC Nucleated RBC % D-Dimer Sodium Potassium Chloride Carbon Dioxide Anion Gap BUN Creatinine Estimated GFR (MDRD) Glucose Calcium Total Bilirubin AST ALT Alkaline Phosphatase Troponin I High Sens Total Protein Albumin Globulin Albumin/Globulin Ratio Lipase TSH Urine Color DARK YELLOW Urine Clarity CLEAR Urine pH 7.0 Ur Specific [place] 1.010 Urine Protein NEGATIVE Urine Glucose (UA) NEGATIVE Urine Ketones NEGATIVE Urine Occult Blood NEGATIVE Urine Nitrite NEGATIVE Urine Bilirubin NEGATIVE Urine Urobilinogen 0.2 (NORMAL) Ur Leukocyte Esterase SMALL H Urine RBC 0-5 Urine WBC 0-3 Ur Squamous Epith Cells MOD Squamous H Urine Bacteria Few Ur Microscopic Review INDICATED Urine Culture Comments NOT INDICATED Nasal Adenovirus (PCR) Nasal B. parapertussis DNA (PCR) Nasal Coronavir 229E PCR Nasal Coronavir HKU1 PCR Nasal Coronavir NL63 PCR Nasal Coronavir OC43 PCR Nasal Enterovir/Rhinovir PCR Nasal Influenza B PCR Nasal Influenza A PCR Nasal Parainfluen 1 PCR Nasal Parainfluen 2 PCR Nasal Parainfluen 3 PCR Nasal Parainfluen 4 PCR Nasal RSV (PCR) Nasal B.pertussis DNA PCR Nasal C.pneumoniae (PCR) Shoaib Human Metapneumo PCR Nasal M.pneumoniae (PCR) Nasal SARS-CoV-2 (PCR) PD MEDICAL DECISION MAKING - ED course Complexity details: reviewed results, d/w patient ED course: Patient is 31-year-old female G4, P3 presenting to the emergency department with dizziness and shortness of breath. Did have a low level tachycardia on arrival to the emergency department was otherwise afebrile and hemodynamically stable. Denied any abdominal pain, vaginal bleeding or other symptoms that would be c oncerning for an acute complication with her . Limited OB ultrasound demonstrated normal heart tones without other significant abnormality. Given patient's reported shortness of breath and tachycardia I obtained an EKG which was negative for indications of acute cardiac ischemia or dysrhythmia. She also had a negative D-dimer, negative troponin however her labs were significant for a moderate anemia with hemoglobin 9.3 as well as a low TSH. The remainder of her labs were all within normal limits or nonactionable. She was observed in the emergency department for several hours. At this time I will discharge on iron Iron supplementation for anemia as well as with medication for nausea. I encouraged her to follow-up closely with both primary care and OPERATIONS INTELLIGENCE SUPERINTENDENT concerning her low TSH for further evaluation of her thyroid. Final clinical impression, anemia, low TSH level, nausea vomiting affecting . Otherwise clear return precautions and follow-up instructions given prior to discharge. Departure - Departure Disposition: Home, Self Care Clinical Impression: Nausea and vomiting during , Anemia affecting in second trimester, Low TSH level Prescriptions: Iron Fumarate/Vit C/Vit B12/FA [Hematogen Forte Softgel] 1 each PO DAILY #30 cap Ondansetron Odt [Zofran] 4 mg TL Q6H PRN #10 tablet PRN Reason: Nausea / Vomiting Comments: Thank you for allowing us to care for you today at [facility]. Your prescriptions were sent electronically to [facility] in [place]. All the testing performed in the emergency department today including your EKG and blood work as well as urine analysis were all very reassuring. I will be discharging with some medication you can take for any ongoing nausea. Please stay well-hydrated at home. You are also found to have some moderate anemia and I like you to begin an oral iron supplement. It will be important for you to follow-up carefully with both your primary care doctor as well as with your OPERATIONS INTELLIGENCE SUPERINTENDENT concerning your low thyroid-stimulating hormone. It is likely that they want to do further testing in the next few days concerning this issue. If it anytime you develop any new or worsening symptoms please not hesitate to return. Discharge Date/Time: 08/02/21 09:26
[2021-08-02 07:39] LABS: ALBUMIN 3.3 g/dL (3.2-5.5); ALBUMIN/GLOBULIN RATIO 1.1 (1.0-2.2); BILIRUBIN,TOTAL 1.2 mg/dL (0.2-1.0); CALCIUM 8.9 mg/dL (8.5-10.3); CREATININE 0.5 mg/dL (0.4-1.0); POTASSIUM 3.4 mmol/L (3.5-5.0); TOTAL PROTEIN 6.3 g/dL (6.7-8.2)
[2021-08-02 07:41] LABS: BASOPHILS % (AUTO) 0.3 %; EOSINOPHILS % (AUTO) 0.2 %; HCT - HEMATOCRIT 24.3 % (37.0-47.0); HGB - HEMOGLOBIN 9.3 g/dL (12.0-16.0); LYMPHOCYTES # (AUTO) 1.1 10^3/uL (1.5-3.5); LYMPHOCYTES % (AUTO) 12.5 %; MEAN CORPUSCULAR HEMOGLOBIN 35.5 pg (27.0-31.0); MEAN CORPUSCULAR HGB CONC 38.3 g/dL (32.0-36.0); MEAN CORPUSCULAR VOLUME 92.7 fL (81.0-99.0); MEAN PLATELET VOLUME 10.3 fL (7.9-10.8); MONOCYTES # (AUTO) 0.3 10^3/uL (0.0-1.0); MONOCYTES % (AUTO) 3.7 %; NEUTROPHILS # (AUTO) 7.1 10^3/uL (1.5-6.6); NEUTROPHILS % (AUTO) 82.4 %; PLT - PLATELET COUNT 237 10^3/uL (130-450); RED BLOOD COUNT 2.62 10^6/uL (4.20-5.40); RED CELL DISTRIBUTION WIDTH 17.7 % (12.0-15.0); WHITE BLOOD COUNT 8.6 x10^3/uL (4.8-10.8)
[2021-08-02 07:51] LABS: BILIRUBIN,URINE NEGATIVE (NEGATIVE); GLUCOSE, URINE (UA) NEGATIVE (NEGATIVE); KETONES,URINE (UA) NEGATIVE (NEGATIVE); LEUKOCYTE ESTERASE, URINE SMALL (NEGATIVE); NITRITE,URINE NEGATIVE (NEGATIVE); OCCULT BLOOD,URINE NEGATIVE (NEGATIVE); PROTEIN,URINE NEGATIVE (NEGATIVE); UROBILINOGEN,URINE 0.2 (NORMAL) E.U./dL (NORMAL)
[2021-08-02 08:12] LABS: CLARITY,URINE CLEAR (CLEAR)
[2021-08-02 08:14] LABS: BACTERIA,URINE Few /HPF (None Seen); RBC,URINE 0-5 /HPF (0-5); SQUAMOUS EPITHELIAL CELL,UR MOD Squamous (<= Few); WBC,URINE 0-3 /HPF (0-5)
[2021-08-02 08:52] LABS: B. PARAPERTUSSIS- RESP PCR PAN NOT DETECTED; B. PERTUSSIS- RESP PCR PANEL NOT DETECTED; C. PNEUMONIAE- RESP PCR PANEL NOT DETECTED; CORONAVIRUS 229E-RESP PCR NOT DETECTED; CORONAVIRUS HKU1-RESP PCR NOT DETECTED; CORONAVIRUS NL63-RESP PCR NOT DETECTED; CORONAVIRUS OC43-RESP PCR NOT DETECTED; HUMAN METAPNEUMOVIRUS NOT DETECTED; INFLUENZA A- RESP PCR PANEL NOT DETECTED; INFLUENZA B - RESP PCR PANEL NOT DETECTED; M. PNEUMONIAE- RESP PCR PANEL NOT DETECTED; PARAINFLUENZA VIRUS 1 NOT DETECTED; PARAINFLUENZA VIRUS 2 NOT DETECTED; PARAINFLUENZA VIRUS 3 NOT DETECTED; PARAINFLUENZA VIRUS 4 NOT DETECTED; RHINOVIRUS/ENTEROVIRUS NOT DETECTED; RSV- RESP PCR PANEL NOT DETECTED; SARS-CoV-2 -RESP PCR PANEL NOT DETECTED
--- NOTE | 2021-08-02 09:23 | Ultrasound Report ---
PROCEDURE: OB Limited INDICATIONS: Rec by OB for heart tones. Twin gestations. OUTSIDE/PRIOR DATING DATA: Last menstrual period (LMP): 04/27/2021. LMP-based estimated date of delivery (KLEVER): 02/01/2022. First dating scan (date and location): 08/01/2021. Estimated date of delivery (KLEVER) from first dating scan: 01/25/2022. The below data below was generated using the ultrasound KLEVER of 01/25/2022 TECHNIQUE: Real-time scanning was performed of the fetuses and maternal pelvic organs, with image documentation. Endovaginal scanning: Performed for better visualization of the fetuses and maternal adnexal structu res. COMPARISON: 08/01/2021 FINDINGS: There are 2 living early second trimester intrauterine gestations GENERAL: An intrauterine diamniotic dichorionic twin is present, as evidenced by separate p lacental sites and/or intervening membrane thickness of greater than 2 mm at this early gestational a ge. Embryo A: Maternal right, breech position. [place]-rump length is 8.3 cm, 14 weeks 2 days Heart rate: 178 bpm Embryo B: Maternal left, vertex. [place]-rump length is 8.9 cm, 14 weeks 5 days Heart rate: 160 bpm Measurement variability in dating: +/- 4 weeks by LMP, +/- 7 days by mean sac diameter (use before 6 weeks gestation if crown-rump length not able to be measured), +/- 5 days by crown-rump length (6-12 weeks gestation). Maternal organs: Ovaries are unremarkable. IMPRESSION: Living diamniotic dichorionic twin gestations, in the early second trimester, with no sonographic saeed dence of complications. Reviewed by: Jamie Mireles MD on 08/02/2021 9:22 AM PDT Approved by: Jamie Mireles MD on 08/02/2021 9:22 AM PDT Station ID: [id number]
[2021-08-02 09:26] VITALS: BP 120/70
[2021-08-02] MEDS ORDERED: FERROUS SULFATE 325 MG TABLET PO SCH (17:00)
== END 2021-08-02 09:26 | disposition home or self-care (01) ==
LOC: ED 06:16
DX: O26.899 Other specified pregnancy related conditions, unspecified trimester (principal); R11.2 Nausea with vomiting, unspecified; O99.012 Anemia complicating pregnancy, second trimester; D64.9 Anemia, unspecified; Z20.822 Contact with and (suspected) exposure to COVID-19; Z3A.00 Weeks of gestation of pregnancy not specified
CPT/HCPCS: 36415; 80053; 81001; 81003; 83690; 84443; 84484; 85025; 85379; 87086; 87633; 93005; 96361; 96374; 99283

== ENCOUNTER 2021-08-05 07:58 | Outpatient (CLI) | payer MEDICAID | END 2021-08-05 07:59 | disposition home or self-care (01) | LOC: LAB 07:58 | PROVIDERS: ATTEND Obstetrics & Gynecology | DX: O30.009 Twin pregnancy, unspecified number of placenta and unspecified number of amniotic sacs, unspecified trimester (principal); R94.6 Abnormal results of thyroid function studies | CPT/HCPCS: 36415; 82950; 84439 ==

== ENCOUNTER 2021-08-28 08:23 | Emergency (ER) | payer MEDICAID ==
--- NOTE | 2021-08-28 08:47 | ED Physician Documentation ---
PD HPI ABD PAIN - Stated complaint Stated Complaint: ABD [id number] TWINS - Chief complaint Chief Complaint: Abd Pain - History obtained from History obtained from: Patient - History of Present Illness Timing - onset: Last night - Additional information Additional information: 31-year-old female at approximately 17 weeks gestational age presents by private vehicle for 1 day of right-sided abdominal pain with nausea and vomiting. Patient states that she has issues with her nausea ongoing since the beginning of her , and it is usually well controlled with Zofran. Last night she noticed constant, nonradiating, aching right lower quadrant abdominal pain. She states that she feels very dehydrated. Patient states that her C APPLICATION DEVELOPER has put her on daily aspirin, that is the only medication she has taken for her pain. Denies vaginal bleeding, contractions, loss of fluids. PD PAST MEDICAL HISTORY - Past Medical History Cardiovascular: None Respiratory: None Neuro: None Endocrine/Autoimmune: None GI: None SMELTER LINER: None : Kidney stones HEENT: None Psych: None Musculoskeletal: None Derm: None - Past Surgical History Past Surgical History: Yes /SMELTER LINER: section - Present Medications Home Medications: Ambulatory Orders Medication Instructions Recorded Confirmed Benzonatate [Tessalon] 200 mg PO TID PRN #30 cap 10/08/20 Cetirizine HCl/Pseudoephedrine 1 each PO BID PRN #30 ea 10/08/20 [Zyrtec-D Tablet] Docusate Sodium 100Mg Capsule 200 mg PO DAILY #30 10/11/20 [Colace 100Mg Capsule] Ondansetron Odt [Zofran Odt] 4 mg TL Q6H PRN #10 tablet 10/11/20 oxyCODONE [Roxicodone] 5 mg PO Q4H PRN #20 tablet 10/11/20 Iron Fumarate/Vit C/Vit B12/FA 1 each PO DAILY #30 cap 08/02/21 [Hematogen Forte Softgel] Ondansetron Odt [Zofran] 4 mg TL Q6H PRN #10 tablet 08/02/21 cephALEXin [Keflex] 500 mg PO BID #20 cap 08/28/21 - Allergies Allergies/Adverse Reactions: Allergies Allergy/AdvReac Type Severity Reaction Status Date / Time No Known Drug Allergies Allergy Verified 08/28/21 08:28 - Social History Does the pt smoke?: No Smoking Status: Never smoker Does the pt drink ETOH?: Yes Does the pt have substance abuse?: Yes - Immunizations Immunizations are current?: Yes - POLST Patient has POLST: No Results - Vitals Vitals: Vital Signs - 24 hr 08/28/21 08/28/21 08/28/21 08:26 09:20 11:00 Temperature 36.4 C L Heart Rate 100 101 H 100 Respiratory 16 20 18 Rate Blood Pressure 119/65 108/70 127/72 O2 Saturation 99 100 100 08/28/21 08/28/21 13:43 15:00 Temperature 37.0 C 37.0 C Heart Rate 92 96 Respiratory 14 18 Rate Blood Pressure 127/77 125/72 O2 Saturation 100 100 Oxygen O2 Source Room air - Labs Labs: Laboratory Tests 08/28/21 08/28/21 08/28/21 08:45 09:05 09:05 WBC 12.8 H RBC 2.82 L Hgb 10.2 L Hct 27.3 L MCV 96.8 MCH 36.2 H MCHC 37.4 H RDW 17.0 H Plt Count 269 MPV 10.1 Neut # (Auto) 10.4 H Lymph # (Auto) 1.6 [place] # (Auto) 0.6 Eos # (Auto) 0.1 Baso # (Auto) 0.1 Absolute Nucleated RBC 0.04 Nucleated RBC % 0.3 Sodium 135 Potassium 3.5 Chloride 103 Carbon Dioxide 21 Anion Gap 11.0 BUN 7 Creatinine 0.4 Estimated GFR (MDRD) 226 Glucose 108 H Calcium 9.4 Total Bilirubin 1.3 H AST 20 ALT 26 Alkaline Phosphatase 56 Total Protein 7.0 Albumin 3.7 Globulin 3.3 Albumin/Globulin Ratio 1.1 Urine Color YELLOW Urine Clarity TURBID Urine pH 6.5 Ur Specific [place] >=1.030 H Urine Protein 30 H Urine Glucose (UA) NEGATIVE Urine Ketones TRACE Urine Occult Blood LARGE H Urine Nitrite POSITIVE H Urine Bilirubin NEGATIVE Urine Urobilinogen 1 (NORMAL) Ur Leukocyte Esterase MODERATE H Urine RBC TNTC H Urine WBC >25 H Ur Squamous Epith Cells MANY Squamous H Urine Bacteria Many H Urine Culture Comments NOT INDICATED PD MEDICAL DECISION MAKING - ED course ED course: Right lower quadrant pain, patient is . No peritoneal signs, abdomen is soft, uterine fundus palpable at the umbilicus. Will give p.o. pain medications, IV fluid hydration. We will check laboratory work and obtain ultrasound. Ultrasound could not visualize the appendix. Ovaries are visualized, no evidence of torsion. Patient is reassessed, abdomen is still soft, however she is continuing to endorse right lower quadrant pain. Cannot rule out appendicitis, will order MRI.Laboratory work is significant for leukocytosis, likely secondary to status. Additionally patient has urinary tract infection. No evidence of appendicitis on MRI. Patient requested note for work, which was provided.Antibiotic sent to pharmacy for urinary tract infection. Departure - Departure Disposition: Home, Self Care Clinical Impression: Dehydration Abdominal pain Qualifiers: Abdominal location: right lower quadrant Qualified Code(s): R10.31 - Right lower quadrant pain Urinary tract infection Qualifiers: Urinary tract infection type: acute cystitis Hematuria presence: without hematuria Qualified Code(s): N30.00 - Acute cystitis without hematuria Condition: Good Instructions: ED Abdominal Pain Female Non-Specific Abdominal Pain, ED UTI Cystitis Female Prescriptions: cephALEXin [Keflex] 500 mg PO BID #20 cap Discharge Date/Time: 08/28/21 16:35
[2021-08-28] MEDS ORDERED: ACETAMINOPHEN 325 MG TABLET PO STA (08:48)
[2021-08-28] MEDS ORDERED: LACTATED RINGERS 1,000 ML IV STA (08:48)
[2021-08-28 08:56] LABS: GLUCOSE, URINE (UA) NEGATIVE (NEGATIVE); KETONES,URINE (UA) TRACE mg/dL (NEGATIVE); LEUKOCYTE ESTERASE, URINE MODERATE (NEGATIVE); NITRITE,URINE POSITIVE (NEGATIVE); OCCULT BLOOD,URINE LARGE (NEGATIVE); PH,URINE 6.5 PH (5.0-7.5); PROTEIN,URINE 30 mg/dL (NEGATIVE); UROBILINOGEN,URINE 1 (NORMAL) E.U./dL (NORMAL)
[2021-08-28 09:02] LABS: BILIRUBIN,URINE NEGATIVE (NEGATIVE); CLARITY,URINE TURBID (CLEAR); ICTOTEST,URINE NEGATIVE
[2021-08-28 09:09] LABS: BACTERIA,URINE Many /HPF (None Seen); RBC,URINE TNTC /HPF (0-5); SQUAMOUS EPITHELIAL CELL,UR MANY Squamous (<= Few); WBC,URINE >25 /HPF (0-5)
[2021-08-28 09:25] LABS: ALBUMIN 3.7 g/dL (3.2-5.5); ALBUMIN/GLOBULIN RATIO 1.1 (1.0-2.2); BILIRUBIN,TOTAL 1.3 mg/dL (0.2-1.0); CALCIUM 9.4 mg/dL (8.5-10.3); CREATININE 0.4 mg/dL (0.4-1.0); POTASSIUM 3.5 mmol/L (3.5-5.0)
[2021-08-28 09:34] LABS: BASOPHILS # (AUTO) 0.1 10^3/uL (0.0-0.1); BASOPHILS % (AUTO) 0.4 %; EOSINOPHILS # (AUTO) 0.1 10^3/uL (0.0-0.7); EOSINOPHILS % (AUTO) 0.4 %; HCT - HEMATOCRIT 27.3 % (37.0-47.0); HGB - HEMOGLOBIN 10.2 g/dL (12.0-16.0); LYMPHOCYTES # (AUTO) 1.6 10^3/uL (1.5-3.5); LYMPHOCYTES % (AUTO) 12.3 %; MEAN CORPUSCULAR HEMOGLOBIN 36.2 pg (27.0-31.0); MEAN CORPUSCULAR HGB CONC 37.4 g/dL (32.0-36.0); MEAN CORPUSCULAR VOLUME 96.8 fL (81.0-99.0); MEAN PLATELET VOLUME 10.1 fL (7.9-10.8); MONOCYTES # (AUTO) 0.6 10^3/uL (0.0-1.0); MONOCYTES % (AUTO) 4.4 %; NEUTROPHILS # (AUTO) 10.4 10^3/uL (1.5-6.6); NEUTROPHILS % (AUTO) 80.8 %; NRBC ABSOLUTE COUNT (AUTO) 0.04 x10^3/uL; NUCLEATED RED BLOOD CELLS AUTO 0.3 /100WBC; PLT - PLATELET COUNT 269 10^3/uL (130-450); RED BLOOD COUNT 2.82 10^6/uL (4.20-5.40); WHITE BLOOD COUNT 12.8 x10^3/uL (4.8-10.8)
--- NOTE | 2021-08-28 11:18 | Ultrasound Report ---
PROCEDURE: Abdomen Limited INDICATIONS: RLQ PAIN, 17WKS PREG TWINS TECHNIQUE: Real-time focused scanning was performed of the abdomen, with image documentation. COMPARISON: No pertinent prior study. FINDINGS: Focused sonographic evaluation of the right lower quadrant was performed. The sulfide head operator reports that the appendix was nonvisualized. No free fluid, fluid collection, or mass identified in t he right lower quadrant. Right ovary isn't identified incidentally and is normal in appearance with n ormal flow. IMPRESSION: Nonvisualized appendix. No secondary sonographic signs of appendicitis. Reviewed by: Roberto Altamirano MD on 08/28/2021 11:17 AM PDT Approved by: Roberto Altamirano MD on 08/28/2021 11:17 AM PDT Station ID: [id number]
[2021-08-28] MEDS ORDERED: ONDANSETRON 4 MG/2 ML VIAL IVP STA (12:05)
[2021-08-28] MEDS ORDERED: ONDANSETRON 4 MG/2 ML VIAL ONE (12:13)
[2021-08-28 15:23] VITALS: BP 125/72
--- NOTE | 2021-09-05 11:58 | MRI Report ---
PROCEDURE: MRI of the pelvis without contrast. INDICATIONS: Right lower quadrant pain, evaluate appendix. . TECHNIQUE: Noncontrast multiplanar multisequence exam of the lower abdomen and pelvis. T1 Coronal, T2 haste rona nal, T2 haste axial and sagittal, T2 haste fat saturated axial, in and out of phase axial, axial diff usion-weighted images, [id number] axial, STIR coronal, T2 fat sat sagittal, T2 fat sat coronal. COMPARISON: Abdomen Limited ultrasound same day, CT abdomen pelvis 11/02/2016. FINDINGS: Image quality: Adequate. Presumed appendix visualized on sagittal T2 haste images, series 6 images 8-11. No definite evidence of acute appendicitis. No definite right lower quadrant inflammatory change. Mild right hydroureteronephrosis is present, presumably related. Visualized large and small bowel is nondilated. A twin intrauterine is present. The fetuses were not evaluated on this exam obtained for as sessment of maternal structures. IMPRESSION: 1. No evidence of acute appendicitis. 2. Mild right hydroureteronephrosis is present, presumably related. Reviewed by: Prakash Sawyer MD on 08/28/2021 1:33 PM PDT Approved by: Prakash Sawyer MD on 08/28/2021 1:33 PM PDT Station ID: [id number]
--- NOTE | 2021-09-28 09:11 | ED Physician Documentation ---
ED Addendum - Addendum Addendum: 09/28/21 09:09 Physical exam: General: Awake, alert, no acute distress, and mild to moderate pain HEENT: Atraumatic, PERRL, no nystagmus, nose normal, mucous membranes moist, pharynx normal Cardiac: Regular rate and rhythm, no murmurs Respiratory: Atraumatic, breath sounds normal, breath sounds equal bilaterally, no wheezing GI: Atraumatic, soft, right lower quadrant tenderness to palpation, no rebound, no guarding MSK back: Atraumatic, full range of motion, [place] motion, no CVA tenderness bilaterally : Deferred Extremities: Atraumatic, full range of motion, painless range of motion Skin: Atraumatic, no rash, warm, dry, intact Neuro: Oriented x3, no motor deficits, no sensory deficits, cranial nerves II through XII intact Psych: Affect normal, mood normal, no suicidal ideation, no homicidal ideation, thought content normal
== END 2021-08-28 16:35 | disposition home or self-care (01) ==
LOC: ED 08:23
DX: O99.282 Endocrine, nutritional and metabolic diseases complicating pregnancy, second trimester (principal); E86.0 Dehydration; O99.891 Other specified diseases and conditions complicating pregnancy; N30.00 Acute cystitis without hematuria; Z3A.17 17 weeks gestation of pregnancy
CPT/HCPCS: 36415; 72195; 76705; 80053; 81001; 85025; 96361; 96374; 99281; 99284; A9270; J7120; 87086

== ENCOUNTER 2021-10-03 06:28 | Outpatient (CLI) | payer MEDICAID ==
--- NOTE | 2021-10-03 14:55 | Ultrasound Report ---
PROCEDURE: OB Detailed Eval Ea Add INDICATIONS: SUPERVISION OF OUTSIDE/PRIOR DATING DATA: Last menstrual period (LMP): 04/27/2021. LMP-based estimated date of delivery (KLEVER): 02/01/2022. First dating scan (date and location): 08/01/2021. Estimated date of delivery (KLEVER) from first dating scan: 01/25/2022. The below data below was generated using the ultrasound KLEVER of 01/25/2022 TECHNIQUE: Real-time scanning was performed of the fetuses, with image documentation and biometric measurements. Please note that all images for this exam are included under the OB ultrasound from the same day un cam[facility] accession number [id number]. Endovaginal scanning: Not performed. COMPARISON: OB ultrasound 08/01/2021 and 08/02/2021. FINDINGS: General: An intrauterine dichorionic-diamniotic twin is present, as evidenced by separate placentas, differing sexes, or an intervening membrane of greater than 2 mm. Composite amniotic fluid index: Not calculated. Maternal cervical canal: 4.6 cm; normal length is 2.5 cm or more. FETUS A: Fetus is located on the maternal right side, and is in cephalic presentation. Largest amniotic fluid pocket: 4.5 cm, normal is 2-8 cm. Placental position is anterior, without previa. heart rate: 171 beats per minute. biometrics: Biparietal diameter: 5.4 cm, 22 weeks 3 days Head circumference: 20.3 cm, 22 weeks 3 days Abdominal circumference: 17.0 cm, 22 weeks 0 days Femur length: 3.8 cm, 22 weeks 1 day Estimated gestational age from initial scan: 23 weeks 5 days Composite gestational age from present scan: 22 weeks 2 days Estimated weight and percentile: 475 g, 2nd percentile Measurement variability in biometric dating: +/- 10 days from 12-20 weeks gestation, +/- 2 weeks from 20-30 weeks gestation, +/- 3 weeks at 30 weeks gestation or later. Anatomic survey: Neuro: Ventricles are normal at less than 10 mm. Cisterna magna is normal at 3-11 mm. Cerebellum i s normal in size and morphology. Nuchal skin fold: Normal at less than 6 mm between 14 and 20 weeks gestational age. Face: Nose and lips, facial profile are normal. Spine: No evidence for spina bifida. Heart: 4 chambered heart is present, with normal ventricular outflow tracts. Diaphragm: Diaphragm is intact. Stomach: Left-sided stomach is present. Kidneys: No hydronephrosis. Normal is less than 5 mm in 2nd trimester, less than 7 mm in 3rd trimester. Cord: 3-vessel cord has orthotopic insertion. Doppler flow is measured with systolic-diastolic ratio of 3.2 and the abdominal insertion, 2.4 the midportion, and 2.8 near the placental attachment. Bladder: Normal in size. Extremities: All 4 extremities are visualized. FETUS B: Fetus is located on the maternal left side, and is in cephalic presentation. Largest amniotic fluid pocket: 8.5 cm, normal is 2-8 cm. Placental position is anterior without previa. heart rate: 150 beats per minute. biometrics: Biparietal diameter: 5.6 cm, 23 weeks 0 days Head circumference: 21.3 cm, 23 weeks 2 days Abdominal circumference: 18.2 cm, 23 weeks 0 days Femur length: 3.9 cm, 22 weeks 3 days Estimated gestational age from initial scan: 23 weeks 5 days Composite gestational age from present scan: 23 weeks 0 days Estimated weight and percentile: 535 g, 10th percentile Measurement variability in biometric dating: +/- 10 days from 12-20 weeks gestation, +/- 2 weeks from 20-30 weeks gestation, +/- 3 weeks at 30 weeks gestation or later. Anatomic survey: Neuro: Ventricles are normal at less than 10 mm. Cisterna magna is normal at 3-11 mm. Cerebellum i s normal in size and morphology. Nuchal skin fold: Normal at less than 6 mm between 14 and 20 weeks gestational age. Face: Nose and lips, facial profile are normal. Spine: No evidence for spina bifida. Heart: 4 chambered heart is present, with normal ventricular outflow tracts. Diaphragm: Diaphragm is intact. Stomach: Left-sided stomach is present. Kidneys: No hydronephrosis. Normal is less than 5 mm in 2nd trimester, less than 7 mm in 3rd trimester. Cord: 3-vessel cord has orthotopic insertion. Bladder: Normal in size. Extremities: All 4 extremities are visualized. IMPRESSION: 1.Intrauterine living dichorionic diamniotic twin . 2.Estimated weight of twin A (maternal right) is 475 g, 2nd percentile for gestational age. Est imated weight of twin B (maternal left) is 535 g, 10th percentile for gestational age. Recommend atte ntion on follow-up exams. 3. anatomic survey is within normal limits for each twin. Reviewed by: Prakash Quezada MD on 10/03/2021 2:53 PM PDT Approved by: Prakash Quezada MD on 10/03/2021 2:53 PM PDT Station ID: [id number]
== END 2021-10-03 06:29 | disposition home or self-care (01) ==
LOC: DI 06:28
PROVIDERS: ATTEND Obstetrics & Gynecology
DX: O09.892 Supervision of other high risk pregnancies, second trimester (principal); O30.042 Twin pregnancy, dichorionic/diamniotic, second trimester; Z3A.23 23 weeks gestation of pregnancy

== ENCOUNTER 2021-10-04 08:46 | Outpatient (CLI) | payer MEDICAID ==
[2021-10-04 09:15] LABS: GTT GLUCOSE,FASTING 123 mg/dL (70-100)
== END 2021-10-04 08:47 | disposition home or self-care (01) ==
LOC: LAB 08:46
PROVIDERS: ATTEND Obstetrics & Gynecology
DX: O99.810 Abnormal glucose complicating pregnancy (principal); R94.6 Abnormal results of thyroid function studies
CPT/HCPCS: 36415; 82951; 82952; 84443